=== PATIENT | male | born 1955 | race Hispanic/Latino ===

== ENCOUNTER 2024-12-24 02:50 | Inpatient (IN) | payer OTHER ==
--- OUTSIDE RECORDS SUMMARY | 2024-12-24 02:54 | XMS REPORT | Continuity of Care Document ---
Author Name Unknown Address [address] [facility] [address] [place] [address] Organization [facility] Address [address] [facility] [place] [address] Care Team Providers Care Window Maker Name Role Phone JOSEPH, [facility] Primary Care Physician UnavailFRANNY Montemayor Attending Clinician Unavail niall House MD, Franny Friedman Attending Clinician RASHID PRAJAPATI Attending Clinician RASHID Holguin Attending Clinician Kirk Prajapati MD, Rashid Ho Attending Clinician [phone] Tisha Zambrano MA Attending Clinician Kirk Ruano MD, Zi Attending Clinician [phone] ZI RUANO Attending Clinician Unavailable 2, [facility] Attending Clinician Unavailable Nate BERTRAND, Rah KDominicHDominic Attending Clinician + [phone] RASHID PRAJAPATI Admitting Clinician Kirk ortiz Payers Payer Name Policy Type Policy Number Effective Date Expirati on Date Source [facility] MEDICARE ADVANTAGE Medicare [id number] 2023 00:00:00 [facility] MATI PPO [id number] 2020 00:00:00 [employer] COMM [id number] 2024 00:00:00 Problems Condition Name Condition Details Condition Category Status Onset Date Resolution Date Last Treatment Date Treating Clinician Comments Source MCI (mild cognitive impairment ) MCI (mild cognitive impairment ) Disease Active 05-05 00:00: 00 Dusty Gilbert Memory loss Memory loss Disease Active 05-05 00:00: 00 Dusty Gilbert Balance problem Balance problem Disease Active 05-05 00:00: 00 Dusty Gilbert Hip pain Hip pain Disease Active 05-05 00:00: 00 Dusty Gilbert Primary hypertensi on Primary hypertensi on Disease Active 05-05 00:00: 00 Dusty Gilbert Headache Headache Disease Active 05-05 00:00: 00 Dusty Gilbert Allergies, Adverse Reactions, Alerts Allergy Name Allergy Type Status Severity Reaction(s) Onset Date Inactive Date Treating Clinician Comments Source ALLERGIE S NOT ON FILE SYSTEMIC Active [facility] NO KNOWN ALLERGIE S Drug Class Active [facility] NO KNOWN ALLERGIE S SYSTEMIC Active [facility] NO KNOWN ALLERGIE S SYSTEMIC Active [facility] NO KNOWN ALLERGIE S SYSTEMIC Active [facility] ALLERGIE S NOT ON FILE SYSTEMIC Active [facility] Social History Social Habit Start Date Stop Date Quantity Comments Source History of tobacco use Cigarette Smoker [facility] Gender identity [facility] Sexual orientation [facility] History of Social function 2024-11-10 00:00:00 2024-11-10 00:00:00 [facility] Alcoholic beverage intake 2024-10-03 00:00:00 2024-10-03 00:00:00 Current drinker of alcohol (finding) [facility] Tobacco use and exposure 2024-05-05 00:00:00 2024-05-05 00:00:00 Smokeless tobacco non-user [facility] Alcohol intake 2023-07-10 00:00:00 2023-07-10 00:00:00 Current drinker of alcohol (finding) [facility] Sex assigned at 1955 00:00:00 1955 00:00:00 [facility] Smoking Status Start Date Stop Date Source Smokes tobacco daily 2024-05-05 00:00:00 [facility] Medications Ordered Medication Name Filled Medication Name Start Date Stop Date Current Medication? Ordering Clinician Indication Dosage Frequency Signature (SIG) Comments Components Source donepezil (Aricept) 10 MG tablet donepezil (Aricept) 10 MG tablet -04 00:00: 00 11-10 23:59 :00 No 10mg Take 1 tablet by mouth at bedtime. Dusty Gilbert traMADoL 50 mg tablet 10-03 00:00: 00 Yes [id number] 50mg Take 1 tablet by mouth every 6 (six) hours as needed (pain). Indication s: acute pain [facility] ondansetron 4 mg tablet 10-03 00:00: 00 Yes [id number] 1 or 2 tablets every 8 hours as needed for nausea [facility] donepezil (Aricept) 10 MG tablet donepezil (Aricept) 10 MG tablet 2023-09 00:00: 00 11-10 00:00 :00 No 10mg Take 1 tablet by mouth at bedtime. Dusty Gilbert donepezil (Aricept) 5 MG tablet donepezil (Aricept) 5 MG tablet 06-02 00:00: 00 07-14 00:00 :00 No 5mg Take 1 tablet by mouth at bedtime. Dusty Gilbert amLODIPine (Norvasc) 10 MG tablet amLODIPine (Norvasc) 10 MG tablet 05-05 09:24: 58 Yes 10mg Take 10 mg by mouth every morning. Dusty Gilbert carvedilol (Coreg) 25 MG tablet carvedilol (Coreg) 25 MG tablet 05-05 09:24: 58 Yes 25mg Q.5D Take 25 mg by mouth in the morning and 25 mg in the evening. Take after meals. Dusty Gilbert acetaminoph en-codeine (Tylenol w/ Codeine #3) 300-30 MG tablet acetaminoph en-codeine (Tylenol w/ Codeine #3) 300-30 MG tablet 02-24 00:00: 00 Yes 1{tbl} Q.5D Take 1 tablet by mouth 2 times a day as needed for pain. Dusty Gilbert predniSONE (Deltasone) 20 MG tablet predniSONE (Deltasone) 20 MG tablet 02-24 00:00: 00 Yes TAKE 3 TABLETS BY MOUTH EVERY DAY FOR 3 DAYS THEN TAKE 2 TABLETS BY MOUTH EVERY DAY FOR 3 DAYS THEN TAKE 1 TABLET BY MOUTH EVERY DAY FOR 3 DAYS Dusty Gilbert amLODIPine 10 mg tablet 2022-09 00:00: 00 Yes [id number] 10mg Take 1 tablet by mouth in the morning. [facility] carvediloL 25 mg tablet 2022-09 00:00: 00 Yes [id number] 25mg Take 1 tablet by mouth in the morning and 1 tablet in the evening. Take with meals. [facility] losartan 100 mg tablet 2022-09 00:00: 00 Yes [id number] 100mg Take 1 tablet by mouth in the morning. [facility] amLODIPine 10 mg tablet 05-31 00:00: 00 07-10 00:00 :00 No [id number] 10mg Take 1 tablet by mouth in the morning. [facility] triamterene -hydrochlor othiazide 37.5-25 mg per capsule 05-31 00:00: 00 07-10 00:00 :00 No [id number] 1{capsu le} Take 1 capsule by mouth every morning. [facility] losartan 100 mg tablet 05-02 00:00: 00 07-10 00:00 :00 No [id number] 100mg Take 1 tablet by mouth in the morning. [facility] carvediloL 25 mg tablet 05-02 00:00: 00 07-10 00:00 :00 No [id number] 25mg Take 1 tablet by mouth in the morning and 1 tablet in the evening. Take with meals. [facility] sildenafiL 100 mg tablet 8-09 00:00: 00 Yes TAKE 1 TABLET BY MOUTH 30 MINUTES BEFORE SEXUAL ACTIVITY. MAX 1 PER DAY [facility] metoprolol succinate XL 50 mg 24 hr tablet 8-07 00:00: 00 05-02 00:00 :00 No 50mg Take 1 tablet by mouth in the morning. [facility] losartan 50 mg tablet 6-12 00:00: 00 2023- 08-24 00:00 :00 No 50mg Take 1 tablet by mouth in the morning. [facility] Vital Signs Vital Name Observation Time Observation Value Comments Oseas lopez Body height 2024-11-10 10:56:00 157.5 cm [facility] Body weight 2024-11-10 10:56:00 65.772 kg [facility] BMI 2024-11-10 10:56:00 26.52 kg/m2 [facility] Oxygen saturation in Arterial blood by Pulse oximetry 2024-11-10 10:56:00 97 /min [facility] Systolic blood pressure 2024-11-10 10:56:00 177 mm[Hg] [facility] Diastolic blood pressure 2024-11-10 10:56:00 101 mm[Hg] [facility] Epic Heart rate 2024-11-10 10:56:00 52 /min [facility] Body temperature 2024-11-10 10:56:00 36.61 [facility] Respiratory rate 2024-11-10 10:56:00 16 /min [facility] Body height 2024-11-10 10:56:00 157.5 cm [facility] Body weight 2024-11-10 10:56:00 65.772 kg [facility] BMI 2024-11-10 10:56:00 26.52 kg/m2 [facility] Oxygen saturation in Arterial blood by Pulse oximetry 2024-11-10 10:56:00 97 /min [facility] Systolic blood pressure 2024-11-10 10:56:00 177 mm[Hg] [facility] Diastolic blood pressure 2024-11-10 10:56:00 101 mm[Hg] [facility] Heart rate 2024-11-10 10:56:00 52 /min [facility] Body temperature 2024-11-10 10:56:00 36.61 [facility] Respiratory rate 2024-11-10 10:56:00 16 /min [facility] Systolic blood pressure 2024-10-04 01:58:00 189 mm[Hg] [facility] Diastolic blood pressure 2024-10-04 01:58:00 94 mm[Hg] [facility] Heart rate 2024-10-04 01:58:00 69 /min [facility] Respiratory rate 2024-10-04 01:58:00 14 /min [facility] Oxygen saturation in Arterial blood by Pulse oximetry 2024-10-04 01:58:00 98 /min [facility] Body temperature 2024-10-04 00:15:18 37.06 Ayana [facility] Body height 2024-10-03 23:41:44 157.5 cm [facility] Body weight 2024-10-03 23:41:44 63.504 kg [facility] BMI 2024-10-03 23:41:44 25.61 kg/m2 [facility] Systolic blood pressure 2024-07-14 14:44:00 158 mm[Hg] [facility] Diastolic blood pressure 2024-07-14 14:44:00 84 mm[Hg] [facility] Heart rate 2024-07-14 14:44:00 54 /min [facility] Body temperature 2024-07-14 14:44:00 36.89 Ayana [facility] Respiratory rate 2024-07-14 14:44:00 16 /min [facility] Body height 2024-07-14 14:44:00 157.5 cm [facility] Body weight 2024-07-14 14:44:00 63.685 kg [facility] BMI 2024-07-14 14:44:00 25.68 kg/m2 [facility] Oxygen saturation in Arterial blood by Pulse oximetry 2024-07-14 14:44:00 97 /min [facility] Systolic blood pressure 2024-07-14 14:44:00 158 mm[Hg] [facility] Diastolic blood pressure 2024-07-14 14:44:00 84 mm[Hg] [facility] Heart rate 2024-07-14 14:44:00 54 /min [facility] Body temperature 2024-07-14 14:44:00 36.89 Ayana [facility] Respiratory rate 2024-07-14 14:44:00 16 /min [facility] Body height 2024-07-14 14:44:00 157.5 cm [facility] [place] [facility] Body weight 2024-07-14 14:44:00 63.685 kg [facility] [place] [facility] BMI 2024-07-14 14:44:00 25.68 kg/m2 [facility] Oxygen saturation in Arterial blood by Pulse oximetry 2024-07-14 14:44:00 97 /min [facility] Systolic blood pressure 2024-06-02 14:41:00 154 mm[Hg] [facility] Diastolic blood pressure 2024-06-02 14:41:00 86 mm[Hg] [facility] Heart rate 2024-06-02 14:41:00 57 /min [facility] [place] [facility] Body temperature 2024-06-02 14:41:00 37.22 [facility] Respiratory rate 2024-06-02 14:41:00 16 /min [facility] Body height 2024-06-02 14:41:00 157.5 cm [facility] Body weight 2024-06-02 14:41:00 62.596 kg [facility] [place] Epic BMI 2024-06-02 14:41:00 25.24 kg/m2 [facility] [place] [facility] Oxygen saturation in Arterial blood by Pulse oximetry 2024-06-02 14:41:00 98 /min [facility] Systolic blood pressure 2024-06-02 14:41:00 154 mm[Hg] [facility] Diastolic blood pressure 2024-06-02 14:41:00 86 mm[Hg] [facility] Heart rate 2024-06-02 14:41:00 57 /min [facility] Body temperature 2024-06-02 14:41:00 37.22 [facility] Epic Respiratory rate 2024-06-02 14:41:00 16 /min [facility] Body height 2024-06-02 14:41:00 157.5 cm [facility] [place] [facility] Body weight 2024-06-02 14:41:00 62.596 kg [facility] BMI 2024-06-02 14:41:00 25.24 kg/m2 [facility] Oxygen saturation in Arterial blood by Pulse oximetry 2024-06-02 14:41:00 98 /min [facility] Systolic blood pressure 2024-05-05 09:27:00 157 mm[Hg] [facility] Her [facility] Diastolic blood pressure 2024-05-05 09:27:00 91 mm[Hg] [facility] Heart rate 2024-05-05 09:27:00 61 /min [facility] Body temperature 2024-05-05 09:27:00 36.78 Ayana [facility] Respiratory rate 2024-05-05 09:27:00 16 /min [facility] Body height 2024-05-05 09:27:00 157.5 cm [facility] [place] [facility] Body weight 2024-05-05 09:27:00 62.596 kg [facility] BMI 2024-05-05 09:27:00 25.24 kg/m2 [facility] [place] [facility] Oxygen saturation in Arterial blood by Pulse oximetry 2024-05-05 09:27:00 98 /min [facility] Her [facility] Systolic blood pressure 2024-05-05 09:27:00 157 mm[Hg] [facility] Her ferreira [facility] Diastolic blood pressure 2024-05-05 09:27:00 91 mm[Hg] [facility] Heart rate 2024-05-05 09:27:00 61 /min [facility] Body temperature 2024-05-05 09:27:00 36.78 Ayana [facility] Epic Respiratory rate 2024-05-05 09:27:00 16 /min [facility] Body height 2024-05-05 09:27:00 157.5 cm [facility] Body weight 2024-05-05 09:27:00 62.596 kg [facility] BMI 2024-05-05 09:27:00 25.24 kg/m2 [facility] [place] [facility] Oxygen saturation in Arterial blood by Pulse oximetry 2024-05-05 09:27:00 98 /min [facility] Systolic blood pressure 2023-07-10 18:40:00 96 mm[Hg] [facility] Diastolic blood pressure 2023-07-10 18:40:00 64 mm[Hg] [facility] Heart rate 2023-07-10 18:40:00 51 /min [facility] Body temperature 2023-07-10 18:40:00 36.89 Ayana [facility] Respiratory rate 2023-07-10 18:40:00 18 /min [facility] Body height 2023-07-10 18:40:00 157.5 cm [facility] Body weight 2023-07-10 18:40:00 61.78 kg [facility] BMI 2023-07-10 18:40:00 24.91 kg/m2 [facility] Oxygen saturation in Arterial blood by Pulse oximetry 2023-07-10 18:40:00 99 /min [facility] Systolic blood pressure 2023-05-31 18:35:00 187 mm[Hg] [facility] Diastolic blood pressure 2023-05-31 18:35:00 99 mm[Hg] [facility] Heart rate 2023-05-31 18:35:00 57 /min [facility] Oxygen saturation in Arterial blood by Pulse oximetry 2023-05-31 18:35:00 95 /min [facility] Body weight 2023-05-31 18:33:00 61.462 kg Univ [facility] BMI 2023-05-31 18:33:00 24.78 kg/m2 [facility] Respiratory rate 2023-05-31 18:33:00 19 /min [facility] Body height 2023-05-31 18:33:00 157.5 cm [facility] Systolic blood pressure 2023-05-02 20:56:00 178 mm[Hg] [facility] Diastolic blood pressure 2023-05-02 20:56:00 114 mm[Hg] [facility] Heart rate 2023-05-02 20:56:00 67 /min [facility] Body height 2023-05-02 20:56:00 157.5 cm [facility] Body weight 2023-05-02 20:56:00 61.1 kg [facility] BMI 2023-05-02 20:56:00 24.64 kg/m2 [facility] Oxygen saturation in Arterial blood by Pulse oximetry 2023-05-02 20:56:00 95 /min [facility] Procedures Procedure Date / Time Performed Performing Clinician Source EKG-12 LEAD 2024-10-04 02:02:41 Rashid Prajapati [facility] TROPONIN I 2024-10-04 00:09:00 Rashid Prajapati [facility] COMP. METABOLIC PANEL ([id number]) 2024-10-04 00:09:00 Rashid Prajapati [facility] CBC WITH DIFF 2024-10-04 00:09:00 Rashid Prajapati [facility] Complete Blood Count w/Diff and Platelet 2024-05-05 00:00:00 [facility] Comprehensive Metabolic Panel 2024-05-05 00:00:00 [facility] Copper Level 2024-05-05 00:00:00 [facility] C-Reactive Protein 2024-05-05 00:00:00 [facility] Sedimentation Rate 2024-05-05 00:00:00 [facility] Thyroid Stimulating Hormone w/ Reflex Free T4 2024-05-05 00:00:00 [facility] Vitamin B1 Level 2024-05-05 00:00:00 [facility] Vitamin B12 Level 2024-05-05 00:00:00 [facility] Zinc Level 2024-05-05 00:00:00 [facility] XR chest 2 views 2024-05-05 00:00:00 [facility] MRI brain wo IV contrast 2024-05-05 00:00:00 [facility] XR hip 2-3 views left 2024-05-05 00:00:00 [facility] TRANSTHORACIC ECHO (TTE) COMPLETE 2023-07-10 18:24:58 Zi Ruano [facility] EKG-12 LEAD 2023-05-02 20:49:57 Zi Ruano [facility] Encounters Start Date/Time End Date/Time Encounter Type Admission Type Attending Clinicians Care Facility Care Department Encounter ID Source 2024-11-10 10:46:46 2024-11-10 11:14:58 Outpatient FRANNY HOUSE [id number] [facility] 2024-11-10 10:45:00 2024-11-10 11:14:58 Office Visit rFanny House Justin 1.2.840.114 350.1.13.70 8.2.7.2.686 [id number] Dusty stephenson [facility] 2024-10-03 17:39:00 2024-10-03 20:20:00 Emergency X R[facility]ID [facility] [id number] [facility] 2024-10-03 17:39:00 2024-10-03 20:20:00 Emergency [facility] 1.2.840.114 350.1.13.10 4.2.7.2.686 [id number] [facility] 2024-07-14 14:13:28 2024-07-14 15:05:29 Outpatient FRANNY HOUSE [facility] EOUT [id number] [facility] 2024-07-14 14:30:00 2024-07-14 14:45:00 Office Visit Franny House Justin [id number] 350.1.13.70 8.2.7.2.686 [id number] Dusty stephenson [facility] 2024-06-04 00:00:00 2024-07-05 23:52:47 Telephone Tisha Zambrano [place] 1.2.840.114 350.1.13.70 8.2.7.2.686 [id number] [facility] 2024-06-02 14:30:00 2024-06-02 15:16:18 Office Visit Franny House Justin [id number] 350.1.13.70 8.2.7.2.686 [id number] Dusty stephenson [facility] 2024-06-02 14:20:26 2024-06-02 15:16:18 Outpatient FRANNY HOUSE EOUT [facility] [id number] [facility] 2024-05-05 09:30:00 2024-05-05 10:14:55 Consult Franny House Justin 1.2.840.114 350.1.13.70 8.2.7.2.686 [id number] [facility] 2024-05-05 09:07:17 2024-05-05 10:14:55 Outpatient Elective FRANNY HOUSE EOUT EOUT [id number] [facility] 2023-07-11 00:00:00 2023-07-11 00:00:00 [facility] 1.2.840.114 350.1.13.10 4.2.7.2.686 [id number] [facility] 2023-07-10 12:32:35 2023-07-10 23:59:00 [facility] [id number] 2023-07-10 12:32:35 2023-07-10 23:59:00 [facility] 1.2.840.114 350.1.13.10 4.2.7.2.686 [id number] [facility] 2023-07-10 14:20:00 2023-07-10 14:40:00 [facility] 1.2.840.114 350.1.13.10 4.2.7.2.686 [id number] [facility] 2023-06-03 00:00:00 2023-06-03 00:00:00 [facility]phone [facility] 1.2.840.114 350.1.13.10 4.2.7.2.686 [id number] [facility] 2023-06-03 00:00:00 2023-06-03 00:00:00 [facility] 1.2.840.114 350.1.13.10 4.2.7.2.686 [id number] [facility] 2023-05-31 14:00:00 2023-05-31 14:15:00 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 Project 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 Visit 2, [facility] 1.2.840.114 350.1.13.10 4.2.7.2.686 [id number] [facility] 2023-05-31 13:40:00 2023-05-31 13:56:56 Outpatient R BINDU [facility] [id number] [facility] 2023-05-31 13:40:00 2023-05-31 13:56:56 Office Visit Bindu [facility] 1.2.840.114 350.1.13.10 4.2.7.2.686 [id number] [facility] 2023-05-07 00:00:00 2023-05-07 00:00:00 Telephone Rah Sullivan [facility] 1.2.840.114 350.1.13.10 4.2.7.2.686 [id number] [facility] 2023-05-06 00:00:00 2023-05-06 00:00:00 Telephone Bindu [facility] 1.2.840.114 350.1.13.10 4.2.7.2.686 [id number] [facility] 2023-05-03 00:00:00 2023-05-03 00:00:00 Telephone Bindu, [facility] 1.2.840.114 350.1.13.10 4.2.7.2.686 [id number] [facility] 2023-05-02 15:40:00 2023-05-02 16:17:46 [facility] [id number] [facility] 2023-05-02 15:40:00 2023-05-02 16:17:46 [facility] 1.2.840.114 350.1.13.10 4.2.7.2.686 [id number] [facility] Results Test Description Test Time Test Comments Results Result Co mments Source [facility] Notes has a current medication list which includes the following prescription(s):Vitals:Neurological ExamCranial NervesMotorSensoryReflexesGaitResults for orders placed or performed in visit on 05/05/24 Date/Time Note Provider Source 2024-11-10 11:22:05 [facility] 2024-11-10 11:22:05 Franny House MD - 11/10/2024 10:45 AM 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 BP is high today. No behavioral problems. No new issues referable to his nervous system Allergies as of 11/10/2024 (No Known Allergies) acetaminophen-codeine, amlodipine, carvedilol, prednisone, and donepezil. 11/10/24 1056 BP: (!) 177/101 Pulse: 52 Resp: 16 Temp: 36.6 ?C (97.9 ?F) SpO2: 97% Mental Status Awake and alert. Speech is normal. Year, day, not month 6/6 pictures. CN II: Visual acuity is normal. CN III, IV, : Extraocular movements intact bilaterally. Pupils equal round and reactive to light bilaterally. CN VII: Full and symmetric facial movement. CN XII: Tongue midline without atrophy or fasciculations. Strength is 5/5 throughout all four extremities. Light touch is normal in upper and lower extremities. Temperature is normal in upper and lower extremities. Vibration is normal in upper and lower extremities. Deep tendon reflexes: Symmetric. Casual gait is normal including stance, stride, and arm swing. Complete Blood Count w/Diff and Platelet Collection Time: 05/08/24 8:14 AM Result Value Ref Range WBC X 10x3 6.5 3.8 - 10.8 Thousand/uL RBC X 10x6 5.11 4.20 - 5.80 Million/uL Hgb 14.9 13.2 - 17.1 g/dL Hct 44.5 38.5 - 50.0 % MCV 87.1 80.0 - 100.0 fL MCH 29.2 27.0 - 33.0 pg MCHC 33.5 32.0 - 36.0 g/dL RDW 13.9 11.0 - 15.0 % Platelet 199 140 - 400 Thousand/uL MPV 11.9 7.5 - 12.5 fL Segs # 4,238 1,500 - 7,800 cells/uL Lymphocytes # 1,547 850 - 3,900 cells/uL Monocytes # 371 200 - 950 cells/uL Eosinophils # 312 15 - 500 cells/uL Basophils # 33 0 - 200 cells/uL Segs % 65.2 % Lymphocytes 23.8 % Monocytes 5.7 % Eos % 4.8 % Basophils 0.5 % Comprehensive Metabolic Panel Collection Time: 05/08/24 8:14 AM Result Value Ref Range Glucose Lvl 94 65 - 99 mg/dL BUN 15 7 - 25 mg/dL Creatinine Lvl 0.73 0.70 - 1.35 mg/dL eGFR 98 > OR = 60 mL/min/1.73m2 B/C Ratio SEE NOTE: 6 - 22 (calc) Sodium Lvl 138 135 - 146 mmol/L Potassium Lvl 3.9 3.5 - 5.3 mmol/L Chloride Lvl 104 98 - 110 mmol/L CO2 Lvl 25 20 - 32 mmol/L Calcium Lvl 8.6 8.6 - 10.3 mg/dL Total Protein 6.5 6.1 - 8.1 g/dL Albumin Lvl 4.0 3.6 - 5.1 g/dL Globulin 2.5 1.9 - 3.7 g/dL (calc) A/G Ratio 1.6 1.0 - 2.5 (calc) Bili Total 1.1 0.2 - 1.2 mg/dL Alk Phos 69 35 - 144 U/L AST 13 10 - 35 U/L ALANINE AMINOTRANSFERASE 9 9 - 46 U/L Copper Level Collection Time: 05/08/24 8:14 AM Result Value Ref Range Copper Lvl 75 70 - 175 mcg/dL C-Reactive Protein Collection Time: 05/08/24 8:14 AM Result Value Ref Range C-Reactive Protein <3.0 <8.0 mg/L Sedimentation Rate Collection Time: 05/08/24 8:14 AM Result Value Ref Range Sed Rate 2 0 - 20 mm/h Thyroid Stimulating Hormone w/ Reflex Free T4 Collection Time: 05/08/24 8:14 AM Result Value Ref Range TSH 1.66 0.40 - 4.50 mIU/L Vitamin B1 Level Collection Time: 05/08/24 8:14 AM Result Value Ref Range VITAMIN B1 (THIAMINE) WHOLE BLOOD 112 78 - 185 nmol/L Vitamin B12 Level Collection Time: 05/08/24 8:14 AM Result Value Ref Range Vitamin B12 Lvl 209 200 - 1,100 pg/mL Zinc Level Collection Time: 05/08/24 8:14 AM Result Value Ref Range Zinc Lvl 59 (L) 60 - 130 mcg/dL Diagnoses and all orders for this visit: MCI (mild cognitive impairment) Other orders - donepezil (Aricept) 10 MG tablet; Take 1 tablet by mouth at bedtime. Stable, continue present medications. [facility] Due Date Last Done Comments CT Colonography 1955 Colonoscopy 1955 Colorectal Cancer Screening 1955 FIT-DNA 1955 FIT 1955 FOBT 1955 Lipid Panel 1955 Medicare Annual Wellness (AWV) 1955 Sigmoidoscopy 1955 Annual Physical 1958 Pneumococcal Vaccine: 65+ Ye ars (1 of 2 - PCV) 1961 DTaP/Tdap/Td Vaccines (1 - Tdap) 1974 Zoster Vaccines (1 of 2) 2005 Abdominal Aortic Aneurysm (A AA) Screening 01/07/2020 Influenza Vaccine (#1) 2024 Respiratory Syncytial Virus (RSV) or >=60 (1 - 1-dose 75+ series) 2030 HIB Vaccines Aged Out No longer eligi ble based on patient's age to complete this topic HPV Vaccines Aged Out No longer eligi ble based on patient's age to complete this topic Hepatitis A Vaccines Aged Out No long er eligible based on patient's age to complete this topic Hepatitis B Vaccines Aged Out No long er eligible based on patient's age to complete this topic IPV Vaccines Aged Out No longer eligi ble based on patient's age to complete this topic Meningococcal Vaccine Aged Out No priscilla wendy eligible based on patient's age to complete this topic Rotavirus Vaccines Aged Out No longer eligible based on patient's age to complete this topic [id number] 11:22:05 Diagnosis MCI (mild cognitive impairment) - Primary Mild cognitive impairment, so stated [facility]xykvvg1165-32-20 11:22:05 [facility]Xucgzrx0063-22-67 11:22:05* [facility] HospitalMkymzie0771-40-63 11:22:05* Franny House MD - 11/10/2024 10:45 AM 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 BP is high today. No behavioral problems. No new issues referable to his nervous system Allergies as of 11/10/2024 (No Known Allergies) has a current medication list which includes the following prescription(s): acetaminophen-codeine, amlodipine, carvedilol, prednisone, and donepezil. Vitals:11/10/24 1056 BP: (!) 177/101 Pulse: 52 Resp: 16 Temp: 36.6 ?C (97.9 ?F) SpO2: 97% Neurological Exam Mental Status Awake and alert. Speech is normal. Year, day, not month 02/12 pictures. Cranial NervesCN II: Visual acuity is normal. CN III, IV, : Extraocular movements intact bilaterally. Pupils equal round and reactive to light bilaterally. CN VII: Full and symmetric facial movement. CN XII: Tongue midline without atrophy or fasciculations. MotorStrength is 5/5 throughout all four extremities. SensoryLight touch is normal in upper and lower extremities. Temperature is normal in upper and lower extremities. Vibration is normal in upper and lower extremities. ReflexesDeep tendon reflexes: Symmetric. GaitCasual gait is normal including stance, stride, and arm swing. Results for orders placed or performed in visit on 05/05/24 Complete Blood Count w/Diff and Platelet Collection Time: 05/08/24 8:14 AM Result Value Ref Range WBC X 10x3 6.5 3.8 - 10.8 Thousand/uL RBC X 10x6 5.11 4.20 - 5.80 Million/uL Hgb 14.9 13.2 - 17.1 g/dL Hct 44.5 38.5 - 50.0 % MCV 87.1 80.0 - 100.0 fL MCH 29.2 27.0 - 33.0 pg MCHC 33.5 32.0 - 36.0 g/dL RDW 13.9 11.0 - 15.0 % Platelet 199 140 - 400 Thousand/uL MPV 11.9 7.5 - 12.5 fL Segs # 4,238 1,500 - 7,800 cells/uL Lymphocytes # 1,547 850 - 3,900 cells/uL Monocytes # 371 200 - 950 cells/uL Eosinophils # 312 15 - 500 cells/uL Basophils # 33 0 - 200 cells/uL Segs % 65.2 % Lymphocytes 23.8 % Monocytes 5.7 % Eos % 4.8 % Basophils 0.5 % Comprehensive Metabolic Panel Collection Time: 05/08/24 8:14 AM Result Value Ref Range Glucose Lvl 94 65 - 99 mg/dL BUN 15 7 - 25 mg/dL Creatinine Lvl 0.73 0.70 - 1.35 mg/dL eGFR 98 > OR = 60 mL/min/1.73m2 B/C Ratio SEE NOTE: 6 - 22 (calc) Sodium Lvl 138 135 - 146 mmol/L Potassium Lvl 3.9 3.5 - 5.3 mmol/L Chloride Lvl 104 98 - 110 mmol/L CO2 Lvl 25 20 - 32 mmol/L Calcium Lvl 8.6 8.6 - 10.3 mg/dL Total Protein 6.5 6.1 - 8.1 g/dL Albumin Lvl 4.0 3.6 - 5.1 g/dL Globulin 2.5 1.9 - 3.7 g/dL (calc) A/G Ratio 1.6 1.0 - 2.5 (calc) Bili Total 1.1 0.2 - 1.2 mg/dL Alk Phos 69 35 - 144 U/L AST 13 10 - 35 U/L ALANINE AMINOTRANSFERASE 9 9 - 46 U/L Copper Level Collection Time: 05/08/24 8:14 AM Result Value Ref Range Copper Lvl 75 70 - 175 mcg/dL C-Reactive Protein Collection Time: 05/08/24 8:14 AM Result Value Ref Range C-Reactive Protein <3.0 <8.0 mg/L Sedimentation Rate Collection Time: 05/08/24 8:14 AM Result Value Ref Range Sed Rate 2 0 - 20 mm/h Thyroid Stimulating Hormone w/ Reflex Free T4 Collection Time: 05/08/24 8:14 AM Result Value Ref Range TSH 1.66 0.40 - 4.50 mIU/L Vitamin B1 Level Collection Time: 05/08/24 8:14 AM Result Value Ref Range VITAMIN B1 (THIAMINE) WHOLE BLOOD 112 78 - 185 nmol/L Vitamin B12 Level Collection Time: 05/08/24 8:14 AM Result Value Ref Range Vitamin B12 Lvl 209 200 - 1,100 pg/mL Zinc Level Collection Time: 05/08/24 8:14 AM Result Value Ref Range Zinc Lvl 59 (L) 60 - 130 mcg/dL No MRI head results found for the past 12 months Assessment & PlanDiagnoses and all orders for this visit: MCI (mild cognitive impairment) Other orders - donepezil (Aricept) 10 MG tablet; Take 1 tablet by mouth at bedtime. Stable, continue present medications. [facility]2025-03-04 11:22:05Upcoming Encounters Health Maintenance Due Date Last Done Comments CT Colonography 1955 Colonoscopy 1955 Colorectal Cancer Screening 1955 FIT-DNA 1955 FIT 1955 FOBT 1955 Lipid Panel 1955 Medicare Annual Wellness (AWV) 1955 Sigmoidoscopy 1955 Annual Physical 1958 Pneumococcal Vaccine: 65+ Ye ars (1 of 2 - PCV) 1961 DTaP/Tdap/Td Vaccines (1 - Tdap) 1974 Zoster Vaccines (1 of 2) 2005 Abdominal Aortic Aneurysm (A AA) Screening 01/07/2020 Influenza Vaccine (#1) 2024 Respiratory Syncytial Virus (RSV) or >=60 (1 - 1-dose 75+ series) 2030 HIB Vaccines Aged Out No longer eligi ble based on patient's age to complete this topic HPV Vaccines Aged Out No longer eligi ble based on patient's age to complete this topic Hepatitis A Vaccines Aged Out No long er eligible based on patient's age to complete this topic Hepatitis B Vaccines Aged Out No long er eligible based on patient's age to complete this topic IPV Vaccines Aged Out No longer eligi ble based on patient's age to complete this topic Meningococcal Vaccine Aged Out No priscilla wendy eligible based on patient's age to complete this topic Rotavirus Vaccines Aged Out No longer eligible based on patient's age to complete this topic [place] 69219-03-04 11:22:05 Diagnosis MCI (mild cognitive impairment) - Primary Mild cognitive impairment, so stated [place] 692[address]-03-04 11:22:05 [place] [id number] 20:18:30 Patient teaching on f/u care, and prescription meds. Pt verbalized understanding. Pt wheeled to vehicle. No distress noted at this time. [facility] Cheryle Saldaña [facility], [facility]–1983Idvybj8788-15-27 18:30:00 arrived, spouse reports pt did not loose conscience after the fall but was not able to remember he fell. reports she did not witness the fall but hear the noise when patient fell. Pt is suppose to use cane and refuses to use it. Spouse confirms pt is at baseline. [facility]2025-01-25 18:09:[address] scan and [facility] with RN and trauma team. Continuous cardiac monitoring and serial vital signs monitored by nurse. CHERYLE SALDAÑA RN [place] [id number] 17:59:00 Pt being transported to CT accompanied by this nurse and project design engineer with monitor [place] 78885-01-25 17:59:[address] scan with RN and trauma team. Continuous cardiac monitoring and serial vital signs monitored by Nurse. CHERYLE SALDAÑA RN [place] [id number] 17:55:00 MD at bedside [place] [id number] 17:38:00 Associated Order(s): EKG-12 Lead ROUTINE ONCE Pre-Procedure Diagnose(s): Contusion of scalp, initial encounter Post-Procedure Diagnose(s): Contusion of scalp, initial encounter Images from the original note were not included. 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 Denies loss of consciousness. Right sided headache, scalp contusion. Does not recall mechanism of fall. Possible misstep. Denies recent acute medical issues. No light-headedness. No neuro deficits. No fever. No cold symptoms. No chest pain. No dyspnea. No nausea, vomiting, diarrhea. No abdominal pain. No injury elsewhere. History provided by: Patient Past Medical History/Immunizations: History reviewed. No pertinent past medical history. Tetanus received in last 5 years: Unknown Childhood immunizations: Up-to-date Allergies: No Known Allergies Past Social History: Tobacco Use Every Day; Types: Cigarettes Smokeless Tobacco: Never used smokeless tobacco. Alcohol Use Yes. Past Surgical History: History reviewed. No pertinent surgical history. Review of Systems: Review of Systems Constitutional: Negative. HENT: Negative. Eyes: Negative. Respiratory: Negative. Cardiovascular: Negative. Gastrointestinal: Negative. Genitourinary: Negative. Musculoskeletal: Negative. Skin: Positive for wound (right scalp abrasion / hematoma). Neurological: Positive for headaches. Collapse uncertain etiology Psychiatric/Behavioral: Negative. Physical Exam: ED Triage Vitals Weight 10/03/24 1741 63.5 kg (140 lb) Actual or estimated -- Height 10/03/24 1741 1.575 m (5' 2") BP 10/03/24 1741 (!) 168/124 Pulse 10/03/24 1741 68 Resp 10/03/24 1741 13 Temp 10/03/24 1815 37.1 ?C (98.7 ?F) Temp source 10/03/24 1815 Oral SpO2 10/03/24 1741 99 % Measured on 10/03/248 Room air Physical Exam Vitals and nursing note reviewed. Constitutional: General: He is not in acute distress. Appearance: Normal appearance. He is not ill-appearing, toxic-appearing or diaphoretic. HENT: Head: Contusion present. No raccoon eyes, Ramachandran's sign, abrasion, masses, right periorbital erythema, left periorbital erythema or laceration. Hair is normal. Jaw: No tenderness, swelling or pain on movement. Right Ear: Tympanic membrane, ear canal and external ear normal. No laceration, swelling or tenderness. No hemotympanum. Left Ear: Tympanic membrane, ear canal and external ear normal. No laceration, swelling or tenderness. No hemotympanum. Nose: Nose normal. No signs of injury or laceration. Right Nostril: No epistaxis or septal hematoma. Left Nostril: No epistaxis or septal hematoma. Mouth/Throat: Lips: No lesions. Mouth: No injury or lacerations. Eyes: General: Lids are normal. Extraocular Movements: Extraocular movements intact. Conjunctiva/sclera: Conjunctivae normal. Neck: Trachea: Trachea and phonation normal. Cardiovascular: Rate and Rhythm: Normal rate and regular rhythm. Pulmonary: Effort: Pulmonary effort is normal. No respiratory distress. Breath sounds: Normal breath sounds. No wheezing, rhonchi or rales. Chest: Chest wall: No tenderness. Abdominal: General: There is no distension. Palpations: Abdomen is soft. Tenderness: There is no abdominal tenderness. Musculoskeletal: General: Normal range of motion. Cervical back: No spinous process tenderness or muscular tenderness. Skin: General: Skin is warm and dry. Neurological: General: No focal deficit present. Mental Status: He is alert. Comments: Awake, alert, oriented. Amnestic to etiology of fall. No gross motor/sensory/speech deficits Psychiatric: Mood and Affect: Mood normal. Behavior: Behavior normal. Thought Content: Thought content normal. Judgment: Judgment normal. Radiology: CT Head wo contrast Preliminary Result CT HEAD WO CONTRAST, CT CERVICAL SPINE WO CONTRAST HISTORY: Head trauma, moderate-severe right sided head injury; fall from standing COMPARISON: None TECHNIQUE: Unenhanced CT of the head and cervical spine was performed. Sagittal and coronal reformats were obtained. FINDINGS: HEAD: There is no acute intracranial hemorrhage or significant mass effect. The dempsey-white matter differentiation is preserved. No hydrocephalus, midline shift or pathological extra-axial fluid collection is present. Global volume loss with commensurate ventricular caliber. Patchy periventricular hypodensities most likely representing chronic microvascular disease. The basal cisterns are unremarkable. The mastoid air cells and paranasal air sinuses are clear. The calvarium and central skull base are unremarkable. There is a right frontotemporal 1 x 7.6 cm scalp hematoma. CERVICAL SPINE: Straightening of normal cervical lordosis is seen. The vertebral bodies are normal in height and alignment. No acute fracture or traumatic malalignment. The craniocervical junction is intact. IMPRESSION No acute intracranial hemorrhage or mass effect. Large right frontoparietal scalp hematoma without underlying calvarial fracture. No acute fracture or traumatic malalignment in the cervical spine. Preliminary Report Dictated by Resident: Jagruti Hutchins CT Cervical spine wo contrast Preliminary Result CT HEAD WO CONTRAST, CT CERVICAL SPINE WO CONTRAST HISTORY: Head trauma, moderate-severe right sided head injury; fall from standing COMPARISON: None TECHNIQUE: Unenhanced CT of the head and cervical spine was performed. Sagittal and coronal reformats were obtained. FINDINGS: HEAD: There is no acute intracranial hemorrhage or significant mass effect. The dempsey-white matter differentiation is preserved. No hydrocephalus, midline shift or pathological extra-axial fluid collection is present. Global volume loss with commensurate ventricular caliber. Patchy periventricular hypodensities most likely representing chronic microvascular disease. The basal cisterns are unremarkable. The mastoid air cells and paranasal air sinuses are clear. The calvarium and central skull base are unremarkable. There is a right frontotemporal 1 x 7.6 cm scalp hematoma. CERVICAL SPINE: Straightening of normal cervical lordosis is seen. The vertebral bodies are normal in height and alignment. No acute fracture or traumatic malalignment. The craniocervical junction is intact. IMPRESSION No acute intracranial hemorrhage or mass effect. Large right frontoparietal scalp hematoma without underlying calvarial fracture. No acute fracture or traumatic malalignment in the cervical spine. Preliminary Report Dictated by Resident: Jagruti Hutchins Lab Results: Lab Results CBC WITH DIFF - Abnormal Result Value Ref Range WBC 7.59 4.20 - 10.70 10*3/?L RBC 4.80 4.26 - 5.52 10*6/?L HGB 14.2 12.2 - 16.4 g/dL HCT 41.8 38.4 - 49.3 % MCV 87.1 81.7 - 95.6 fL MCH 29.6 26.1 - 32.7 pg MCHC 34.0 31.2 - 35.0 g/dL RDW-SD 41.5 38.5 - 51.6 fL RDW-CV 13.1 12.1 - 15.4 % PLT 224 150 - 328 10*3/?L MPV 11.1 9.8 - 13.0 fL NRBC/100 WBC 0.0 0.0 - 10.0 /100 WBCs NRBC x103<0.01 10*3/?L GRAN MAT (NEUT) % 67.3 % IMM GRAN % 0.90 % LYMPH % 21.1 % MONO % 7.0 % EOS % 3.3 % BASO % 0.4 % GRAN MAT x103(ANC) 5.11 1.99 - 6.95 10*3/uL IMM GRAN x1030.07 (*) 0.00 - 0.06 10*3/uL LYMPH x1031.60 1.09 - 3.23 10*3/uL MONO x1030.53 0.36 - 1.02 10*3/uL EOS x1030.25 0.06 - 0.53 10*3/uL BASO x1030.03 0.01 - 0.09 10*3/uL COMP. METABOLIC PANEL (22340) - Abnormal NA 139 135 - 145 mmol/L K 3.4 (*) 3.5 - 5.0 mmol/L CL 106 98 - 108 mmol/L CO2 TOTAL 25 23 - 31 mmol/L AGAP 8 2 - 16 BUN 20 7 - 23 mg/dL GLUCOSE 126 (*) 70 - 110 mg/dL CREATININE 0.86 0.60 - 1.25 mg/dL TOTAL BILI 1.2 (*) 0.1 - 1.1 mg/dL CALCIUM 8.8 8.6 - 10.6 mg/dL T PROTEIN 6.9 6.3 - 8.2 g/dL ALBUMIN 4.1 3.5 - 5.0 g/dL ALK PHOS 82 34 - 122 U/L ALTv 15 5 - 50 U/L AST(SGOT) 24 13 - 40 U/L eGFR 93.7 mL/min/1.73m2 TROPONIN I - Normal TROPONIN I 0.002 <=0.034 ng/mL EKG: If EKG completed, see Procedure Note. Orders and Treatments: Orders Placed This Encounter Procedures CT Head wo contrast CT Cervical spine wo contrast CBC WITH DIFF COMP. METABOLIC PANEL (78206) TROPONIN I Orders Placed This Encounter Medications traMADoL 50 mg tablet ondansetron 4 mg tablet First Provider Eval: ED Events Date/Time Event User Comments 10/03/241746 Medical Screening Begins RASHID PRAJAPATI MD -- 10/03/241746 First Provider Evaluation RASHID PRAJAPATI MD -- ED COURSE Diagnosis/Impression as of 10/03/242003 Contusion of scalp, initial encounter Collapse Procedures: EKG-12 Lead ROUTINE ONCE Date/Time: 10/03/2024 8:01 PM Performed by: Rashid Prajapati MD Authorized by: Rashid Prajapati MD ECG interpreted by ED Physician in the absence of a vegetable picker: yes Previous ECG: Previous ECG: Compared to current Interpretation: Interpretation: non-specific Rate: ECG rate: 65 ECG rate assessment: normal Rhythm: Rhythm: sinus rhythm Ectopy: Ectopy: none QRS: QRS axis: Left (-39) ST segments: ST segments: Non-specific T waves: T waves: non-specific Comments: Qtc 401 MDM: Medical Decision Making Primary impression: scalp contusion Secondary impression: collapse of uncertain etiology Differential Diagnoses, including but not limited to: electrolyte / glucose abnl, anemia, ROMERO, arrhythmia, acute coronary event, fracture, hemorrhage Problems Addressed: Contusion of scalp, initial encounter: acute illness or injury Amount and/or Complexity of Data Reviewed Independent Historian: Details: Self, family Labs: ordered. Decision-making details documented in ED Course. Radiology: ordered. Decision-making details documented in ED Course. ECG/medicine tests: ordered and independent interpretation performed. Decision-making details documented in ED Course. Discussion of management or test interpretation with external provider(s): N/a Risk OTC drugs. Prescription drug management. Risk Details: Unremarkable OBS in ED. Findings and differential diagnosis discussed with the patient and family, including but not limited to heart related syncope. I have recommended and offered further evaluation by hospitalization. The patient acknowledges and understands my recommendations and clinical concerns, as well as the risks of worsening condition or misdiagnosis from not being hospitalized. The patient declines hospitalization. The patient appears to have appropriate medical decision making capacity.Symptomatic mgmt. Return precautions discussed. Flowsheet Documentation: Scoring Tools: No data recorded Disposition/Condition: ED Disposition ED Disposition Discharge Condition Stable Comment -- Discharge Medications: Patient's Medications START taking these medications ONDANSETRON 4 MG TABLET 1 or 2 tablets every 8 hours as needed for nausea TRAMADOL 50 MG TABLET Take 1 tablet by mouth every 6 (six) hours as needed (pain). Indications: acute pain CONTINUE taking these medications which have NOT CHANGED AMLODIPINE 10 MG TABLET Take 1 tablet by mouth in the morning. CARVEDILOL 25 MG TABLET Take 1 tablet by mouth in the morning and 1 tablet in the evening. Take with meals. LOSARTAN 100 MG TABLET Take 1 tablet by mouth in the morning. SILDENAFIL 100 MG TABLET TAKE 1 TABLET BY MOUTH 30 MINUTES BEFORE SEXUAL ACTIVITY. MAX 1 PER DAY START taking Modified Medications as Prescribed No medications on file STOP taking these medications No medications on file Follow-up: PCP Electronically signed by: Rashid Prajapati MD 10/03/242001 Rashid Prajapati MD 10/03/242003 PATIAL IMAGERY INTELLIGENCE ANALYST [facility]Okytvi4151-22-04 17:37:00 Patient to ED for fall with positive LOC unknown how long with head swelling and contusion. Patient was walking from bathroom at home and walking and fell. Patient doesn't remember the fall. Has no pain at this time. Trauma activation initiated per protocol. PATIAL IMAGERY INTELLIGENCE ANALYST Wade Smith [facility], [facility]–[id number] 15:04:47* [facility] 2024-07-14 15:04:47* Franny House MD - 07/14/2024 2:30 PM GEOSPATIAL IMAGERY INTELLIGENCE ANALYST History of Present Illness HPI No side effects on the Aricept, weight is stable on 5 mg Aricept, increase to 10 mg today. Allergies as of 07/14/2024 (No Known Allergies) has a current medication list which includes the following prescription(s): acetaminophen-codeine, amlodipine, carvedilol, prednisone, and donepezil. Vitals:07/14/24 1444 BP: 158/84 Pulse: 54 Resp: 16 Temp: 36.9 ?C (98.4 ?F) SpO2: 97% Neurological Exam Mental Status Awake and alert. Speech is normal. Cranial NervesCN II: Visual acuity is normal. CN III, IV, : Extraocular movements intact bilaterally. Pupils equal round and reactive to light bilaterally. CN VII: Full and symmetric facial movement. CN XII: Tongue midline without atrophy or fasciculations. MotorStrength is 5/5 throughout all four extremities. SensoryLight touch is normal in upper and lower extremities. Temperature is normal in upper and lower extremities. Vibration is normal in upper and lower extremities. ReflexesDeep tendon reflexes: Symmetric. GaitCasual gait is normal including stance, stride, and arm swing. Results for orders placed or performed in visit on 05/05/24 Complete Blood Count w/Diff and Platelet Collection Time: 05/08/24 8:14 AM Result Value Ref Range WBC X 10x3 6.5 3.8 - 10.8 Thousand/uL RBC X 10x6 5.11 4.20 - 5.80 Million/uL Hgb 14.9 13.2 - 17.1 g/dL Hct 44.5 38.5 - 50.0 % MCV 87.1 80.0 - 100.0 fL MCH 29.2 27.0 - 33.0 pg MCHC 33.5 32.0 - 36.0 g/dL RDW 13.9 11.0 - 15.0 % Platelet 199 140 - 400 Thousand/uL MPV 11.9 7.5 - 12.5 fL Segs # 4,238 1,500 - 7,800 cells/uL Lymphocytes # 1,547 850 - 3,900 cells/uL Monocytes # 371 200 - 950 cells/uL Eosinophils # 312 15 - 500 cells/uL Basophils # 33 0 - 200 cells/uL Segs % 65.2 % Lymphocytes 23.8 % Monocytes 5.7 % Eos % 4.8 % Basophils 0.5 % Comprehensive Metabolic Panel Collection Time: 05/08/24 8:14 AM Result Value Ref Range Glucose Lvl 94 65 - 99 mg/dL BUN 15 7 - 25 mg/dL Creatinine Lvl 0.73 0.70 - 1.35 mg/dL eGFR 98 > OR = 60 mL/min/1.73m2 B/C Ratio SEE NOTE: 6 - 22 (calc) Sodium Lvl 138 135 - 146 mmol/L Potassium Lvl 3.9 3.5 - 5.3 mmol/L Chloride Lvl 104 98 - 110 mmol/L CO2 Lvl 25 20 - 32 mmol/L Calcium Lvl 8.6 8.6 - 10.3 mg/dL Total Protein 6.5 6.1 - 8.1 g/dL Albumin Lvl 4.0 3.6 - 5.1 g/dL Globulin 2.5 1.9 - 3.7 g/dL (calc) A/G Ratio 1.6 1.0 - 2.5 (calc) Bili Total 1.1 0.2 - 1.2 mg/dL Alk Phos 69 35 - 144 U/L AST 13 10 - 35 U/L ALANINE AMINOTRANSFERASE 9 9 - 46 U/L Copper Level Collection Time: 05/08/24 8:14 AM Result Value Ref Range Copper Lvl 75 70 - 175 mcg/dL C-Reactive Protein Collection Time: 05/08/24 8:14 AM Result Value Ref Range C-Reactive Protein <3.0 <8.0 mg/L Sedimentation Rate Collection Time: 05/08/24 8:14 AM Result Value Ref Range Sed Rate 2 0 - 20 mm/h Thyroid Stimulating Hormone w/ Reflex Free T4 Collection Time: 05/08/24 8:14 AM Result Value Ref Range TSH 1.66 0.40 - 4.50 mIU/L Vitamin B1 Level Collection Time: 05/08/24 8:14 AM Result Value Ref Range VITAMIN B1 (THIAMINE) WHOLE BLOOD 112 78 - 185 nmol/L Vitamin B12 Level Collection Time: 05/08/24 8:14 AM Result Value Ref Range Vitamin B12 Lvl 209 200 - 1,100 pg/mL Zinc Level Collection Time: 05/08/24 8:14 AM Result Value Ref Range Zinc Lvl 59 (L) 60 - 130 mcg/dL No MRI head results found for the past 12 months Assessment & PlanDiagnoses and all orders for this visit: MCI (mild cognitive impairment) Other orders - donepezil (Aricept) 10 MG tablet; Take 1 tablet by mouth at bedtime. Increase Aricept PATIAL IMAGERY INTELLIGENCE ANALYST [id number] 15:04:47 [facility] HospitalBiakbtd4439-34-03 15:04:47 Diagnosis MCI (mild cognitive impairment) - Primary Mild cognitive impairment, so stated [facility] HospitalCczfuos4305-15-96 15:04:47 [facility] HospitalTfpldzc6876-36-16 23:56:50Upcoming Encounters Health Maintenance Due Date Last Done Comments CT Colonography 1955 Colonoscopy 1955 Colorectal Cancer Screening 1955 FIT-DNA 1955 FIT 1955 FOBT 1955 Lipid Panel 1955 Medicare Annual Wellness (AWV) 1955 Sigmoidoscopy 1955 Pneumococcal Vaccine: 65+ Ye ars (1 of 2 - PCV) 1961 DTaP/Tdap/Td Vaccines (1 - Tdap) 1974 Zoster Vaccines (1 of 2) 2005 Respiratory Syncytial Virus (RSV) or >=60 (1 - 1-dose 60+ series) 2015 Influenza Vaccine (#1) 2024 HIB Vaccines Aged Out No longer eligi ble based on patient's age to complete this topic HPV Vaccines Aged Out No longer eligi ble based on patient's age to complete this topic Hepatitis A Vaccines Aged Out No long er eligible based on patient's age to complete this topic Hepatitis B Vaccines Aged Out No long er eligible based on patient's age to complete this topic IPV Vaccines Aged Out No longer eligi ble based on patient's age to complete this topic Meningococcal Vaccine Aged Out No priscilla wendy eligible based on patient's age to complete this topic Rotavirus Vaccines Aged Out No longer eligible based on patient's age to complete this topic [facility] [id number] 23:56:50 [place] [id number] 11:52:34 Noted [facility] [id number] 08:51:59 The Pharmacy has dispensed a 90 day supply to the patient with the patient's approval Donepezil 5mg tab. [facility]Houston [facility] HospitalZxjdlzg0701-71-20 17:13:52* [place] [id number] 17:13:52* Franny House MD - 06/02/2024 2:30 PM CDT History of Present Illness HPI Labs are normal, brain MRI atrophy. Patient with mild cognitive impairment. Reviewed options. We recommended starting Aricept 5 mg. Allergies as of 06/02/2024 (No Known Allergies) has a current medication list which includes the following prescription(s): acetaminophen-codeine, amlodipine, carvedilol, prednisone, and donepezil. Vitals:06/02/24 1441 BP: 154/86 Pulse: 57 Resp: 16 Temp: 37.2 ?C (99 ?F) SpO2: 98% Neurological Exam Mental Status Awake and alert. Speech is normal. Cranial NervesCN II: Visual acuity is normal. CN III, IV, : Extraocular movements intact bilaterally. Pupils equal round and reactive to light bilaterally. CN VII: Full and symmetric facial movement. CN XII: Tongue midline without atrophy or fasciculations. MotorStrength is 5/5 throughout all four extremities. SensoryLight touch is normal in upper and lower extremities. Temperature is normal in upper and lower extremities. Vibration is normal in upper and lower extremities. ReflexesDeep tendon reflexes: Symmetric. GaitCasual gait is normal including stance, stride, and arm swing. Results for orders placed or performed in visit on 05/05/24 Complete Blood Count w/Diff and Platelet Collection Time: 05/08/24 8:14 AM Result Value Ref Range WBC X 10x3 6.5 3.8 - 10.8 Thousand/uL RBC X 10x6 5.11 4.20 - 5.80 Million/uL Hgb 14.9 13.2 - 17.1 g/dL Hct 44.5 38.5 - 50.0 % MCV 87.1 80.0 - 100.0 fL MCH 29.2 27.0 - 33.0 pg MCHC 33.5 32.0 - 36.0 g/dL RDW 13.9 11.0 - 15.0 % Platelet 199 140 - 400 Thousand/uL MPV 11.9 7.5 - 12.5 fL Segs # 4,238 1,500 - 7,800 cells/uL Lymphocytes # 1,547 850 - 3,900 cells/uL Monocytes # 371 200 - 950 cells/uL Eosinophils # 312 15 - 500 cells/uL Basophils # 33 0 - 200 cells/uL Segs % 65.2 % Lymphocytes 23.8 % Monocytes 5.7 % Eos % 4.8 % Basophils 0.5 % Comprehensive Metabolic Panel Collection Time: 05/08/24 8:14 AM Result Value Ref Range Glucose Lvl 94 65 - 99 mg/dL BUN 15 7 - 25 mg/dL Creatinine Lvl 0.73 0.70 - 1.35 mg/dL eGFR 98 > OR = 60 mL/min/1.73m2 B/C Ratio SEE NOTE: 6 - 22 (calc) Sodium Lvl 138 135 - 146 mmol/L Potassium Lvl 3.9 3.5 - 5.3 mmol/L Chloride Lvl 104 98 - 110 mmol/L CO2 Lvl 25 20 - 32 mmol/L Calcium Lvl 8.6 8.6 - 10.3 mg/dL Total Protein 6.5 6.1 - 8.1 g/dL Albumin Lvl 4.0 3.6 - 5.1 g/dL Globulin 2.5 1.9 - 3.7 g/dL (calc) A/G Ratio 1.6 1.0 - 2.5 (calc) Bili Total 1.1 0.2 - 1.2 mg/dL Alk Phos 69 35 - 144 U/L AST 13 10 - 35 U/L ALANINE AMINOTRANSFERASE 9 9 - 46 U/L Copper Level Collection Time: 05/08/24 8:14 AM Result Value Ref Range Copper Lvl 75 70 - 175 mcg/dL C-Reactive Protein Collection Time: 05/08/24 8:14 AM Result Value Ref Range C-Reactive Protein <3.0 <8.0 mg/L Sedimentation Rate Collection Time: 05/08/24 8:14 AM Result Value Ref Range Sed Rate 2 0 - 20 mm/h Thyroid Stimulating Hormone w/ Reflex Free T4 Collection Time: 05/08/24 8:14 AM Result Value Ref Range TSH 1.66 0.40 - 4.50 mIU/L Vitamin B1 Level Collection Time: 05/08/24 8:14 AM Result Value Ref Range VITAMIN B1 (THIAMINE) WHOLE BLOOD 112 78 - 185 nmol/L Vitamin B12 Level Collection Time: 05/08/24 8:14 AM Result Value Ref Range Vitamin B12 Lvl 209 200 - 1,100 pg/mL Zinc Level Collection Time: 05/08/24 8:14 AM Result Value Ref Range Zinc Lvl 59 (L) 60 - 130 mcg/dL No MRI head results found for the past 12 months Assessment & PlanDiagnoses and all orders for this visit: MCI (mild cognitive impairment) with memory loss Other orders - donepezil (Aricept) 5 MG tablet; Take 1 tablet by mouth at bedtime. Start Aricept 5 mg at night. Risks, benefits, side effects reviewed with patient. [facility]2024-09-24 17:13:52Upcoming Encounters Health Maintenance Due Date Last Done Comments CT Colonography 1955 Colonoscopy 1955 Colorectal Cancer Screening 1955 FIT-DNA 1955 FIT 1955 FOBT 1955 Lipid Panel 1955 Medicare Annual Wellness (AWV) 1955 Sigmoidoscopy 1955 Pneumococcal Vaccine: 65+ Ye ars (1 of 2 - PCV) 1961 DTaP/Tdap/Td Vaccines (1 - Tdap) 1974 Zoster Vaccines (1 of 2) 2005 Respiratory Syncytial Virus (RSV) or >=60 (1 - 1-dose 60+ series) 2015 Influenza Vaccine (#1) 2024 HIB Vaccines Aged Out No longer eligi ble based on patient's age to complete this topic HPV Vaccines Aged Out No longer eligi ble based on patient's age to complete this topic Hepatitis A Vaccines Aged Out No long er eligible based on patient's age to complete this topic Hepatitis B Vaccines Aged Out No long er eligible based on patient's age to complete this topic IPV Vaccines Aged Out No longer eligi ble based on patient's age to complete this topic Meningococcal Vaccine Aged Out No priscilla wendy eligible based on patient's age to complete this topic Rotavirus Vaccines Aged Out No longer eligible based on patient's age to complete this topic [facility] [id number] 17:13:52 Diagnosis MCI (mild cognitive impairment) with memory loss - Primary Mild cognitive impairment, so stated [facility] HospitalLayszej4511-50-07 17:13:52 [facility] HospitalUwuvrce6558-86-93 10:55:08* Imaging (Routine) - Incomplete Specialty Diagnoses / Procedures Referred By Manny t Referred To Contact Radiology Diagnoses Memory loss Balance problem Other headache syndrome Pain of left hip Procedures MRI brain wo IV contrast Franny House MD [address] [place] [id number] Referral ID Status Reason Start Date Expiration Date V isits Requested Visits Authorized [id number] Incomplete 05/05/2024 11/01/2024 1 1 [facility] HospitalBbhqhkb7183-95-37 10:55:08* [facility] HospitalKwulpks5921-90-29 10:55:08* Franny House MD - 05/05/2024 9:30 AM CDT Subjective Mary Anne Curtis Sr. is a 69 y.o. male presenting with memory loss. History of Present Illness HPI 69-year-old gentleman here with his for further evaluation of memory problems. Ongoing 8 months to a year. He does not really like going to doctors so he has not really had any studies. His insisted that his memory is poor and that he have it evaluated. Issues with short-term memory loss, difficulty paying bills, got lost driving. All very concerning symptoms. No severe behavioral problems. Patient does not really think he has memory problems when I inquire about that directly. Here for further evaluation. Left hip pain more longstanding ObjectivePast Medical History He has no past medical history on file. Surgical HistoryHe has a past surgical history that includes Back surgery and Cholecystectomy. Family HistoryFamily History: Problem Relation Name Age of Onset Cancer Mother Hypertension Mother Cancer Father Diabetes Sister Hypertension Sister Heart disease Sister No Known Problems Brother No Known Problems Mother's Sister No Known Problems Mother's Brother No Known Problems Father's Sister No Known Problems Father's Brother No Known Problems Maternal Grandmother No Known Problems Maternal Grandfather No Known Problems Paternal Grandmother No Known Problems Paternal Grandfather No Known Problems Other Social History He reports that he has been smoking cigarettes. He has never used smokeless tobacco. He reports that he does not drink alcohol and does not use drugs. AllergiesPatient has no known allergies. MedicationsCurrent Outpatient Medications Medication Sig Dispense Refill acetaminophen-codeine (Tylenol w/ Codeine #3) 300-30 MG tablet Take 1 tablet by mouth 2 times a day as needed for pain. amLODIPine (Norvasc) 10 MG tablet Take 10 mg by mouth every morning. carvedilol (Coreg) 25 MG tablet Take 25 mg by mouth in the morning and 25 mg in the evening. Take after meals. predniSONE (Deltasone) 20 MG tablet TAKE 3 TABLETS BY MOUTH EVERY DAY FOR 3 DAYS THEN TAKE 2 TABLETS BY MOUTH EVERY DAY FOR 3 DAYS THEN TAKE 1 TABLET BY MOUTH EVERY DAY FOR 3 DAYS No current facility-administered medications for this visit. Review of Systems Musculoskeletal: Positive for gait problem and myalgias. Neurological: Positive for headaches. Psychiatric/Behavioral: Positive for confusion. Last Recorded Vitals Vitals: 05/05/24 0927 BP: (!) 157/91 Pulse: 61 Resp: 16 Temp: 36.8 ?C (98.2 ?F) SpO2: 98% Physical ExamVitals reviewed. Constitutional: Appearance: Normal appearance. HENT: Head: Normocephalic and atraumatic. Eyes: General: Lids are normal. Extraocular Movements: Extraocular movements intact. Pupils: Pupils are equal, round, and reactive to light. Neck: Vascular: No carotid bruit. Cardiovascular: Rate and Rhythm: Normal rate and regular rhythm. Pulmonary: Effort: Pulmonary effort is normal. Breath sounds: Normal breath sounds. Abdominal: General: Bowel sounds are normal. Musculoskeletal: General: Tenderness present. Cervical back: Normal range of motion and neck supple. Comments: Left hip Neurological: Motor: Motor strength is normal. Coordination: Coordination is intact. Deep Tendon Reflexes: Reflexes are normal and symmetric. Psychiatric: Mood and Affect: Mood normal. Speech: Speech normal. Behavior: Behavior normal. Neurological ExamMental Status Awake, alert and oriented to person, place and time. Recalls 3 of 3 objects immediately. At 5 minutes recalls 2 of 3 objects. Recalls 2 of 3 objects with prompting. Speech is normal. Able to name objects and name parts of objects. Difficulty spelling words backwards. 3/5. MMSE score: 25. Oriented to year, month, state, town 5/6 pics. Cranial NervesCN II: Visual acuity is normal. Visual carty full to confrontation. CN III, IV, : Extraocular movements intact bilaterally. Normal lids and orbits bilaterally. Pupils equal round and reactive to light bilaterally. CN V: Facial sensation is normal. CN VII: Full and symmetric facial movement. CN VIII: Hearing is normal. CN IX, X: Palate elevates symmetrically. Normal gag reflex. CN XI: Shoulder shrug strength is normal. CN XII: Tongue midline without atrophy or fasciculations. MotorNormal muscle bulk throughout. Normal muscle tone. No abnormal involuntary movements. Strength is 5/5 throughout all four extremities. SensorySensation is intact to light touch, pinprick, vibration and proprioception in all four extremities. ReflexesDeep tendon reflexes are 2+ and symmetric in all four extremities. Coordination [id number], rapid alternating movements and cnmr-gl-ahsk normal bilaterally without dysmetria. Gait Unsteady, small steps. Relevant Resultsnone Assessment/Plan Diagnoses and all orders for this visit: Memory loss - Complete Blood Count w/Diff and Platelet; Future - Comprehensive Metabolic Panel; Future - Copper Level; Future - C-Reactive Protein; Future - Sedimentation Rate; Future - Thyroid Stimulating Hormone w/ Reflex Free T4; Future - Vitamin B1 Level; Future - Vitamin B12 Level; Future - Zinc Level; Future - XR chest 2 views; Future - MRI brain wo IV contrast; Future - XR hip 2-3 views left; Future Balance problem - Complete Blood Count w/Diff and Platelet; Future - Comprehensive Metabolic Panel; Future - Copper Level; Future - C-Reactive Protein; Future - Sedimentation Rate; Future - Thyroid Stimulating Hormone w/ Reflex Free T4; Future - Vitamin B1 Level; Future - Vitamin B12 Level; Future - Zinc Level; Future - XR chest 2 views; Future - MRI brain wo IV contrast; Future - XR hip 2-3 views left; Future Other headache syndrome - Complete Blood Count w/Diff and Platelet; Future - Comprehensive Metabolic Panel; Future - Copper Level; Future - C-Reactive Protein; Future - Sedimentation Rate; Future - Thyroid Stimulating Hormone w/ Reflex Free T4; Future - Vitamin B1 Level; Future - Vitamin B12 Level; Future - Zinc Level; Future - XR chest 2 views; Future - MRI brain wo IV contrast; Future - XR hip 2-3 views left; Future Pain of left hip - Complete Blood Count w/Diff and Platelet; Future - Comprehensive Metabolic Panel; Future - Copper Level; Future - C-Reactive Protein; Future - Sedimentation Rate; Future - Thyroid Stimulating Hormone w/ Reflex Free T4; Future - Vitamin B1 Level; Future - Vitamin B12 Level; Future - Zinc Level; Future - XR chest 2 views; Future - MRI brain wo IV contrast; Future - XR hip 2-3 views left; Future MMSE 25/30. Reviewed with the patient his memory loss is excessive for his age. Check brain MRI, labs, chest x-ray plain film of the left hip. [facility]2024-08-27 10:55:08Upcoming Encounters Scheduled Orders Name Type Priority Associated Diagnoses Orde r Schedule Complete Blood Count w/Diff and Platelet Lab Routine Memory loss Balance problem Other headache syndrome Pain of left hip Expected: 05/05/2024 (Approximate), Expires: 05/05/2025 Comprehensive Metabolic Panel Lab Routine Memory loss Balance problem Other headache syndrome Pain of left hip Expected: 05/05/2024 (Approximate), Expires: 05/05/2025 Copper Level Lab Routine Memory loss Balance problem Other headache syndrome Pain of left hip Expected: 05/05/2024 (Approximate), Expires: 05/05/2025 C-Reactive Protein Lab Routine Memory loss Balance problem Other headache syndrome Pain of left hip Expected: 05/05/2024 (Approximate), Expires: 05/05/2025 Sedimentation Rate Lab Routine Memory loss Balance problem Other headache syndrome Pain of left hip Expected: 05/05/2024 (Approximate), Expires: 05/05/2025 Thyroid Stimulating Hormone w/ Reflex Free T4 Lab Routine Memory loss Balance problem Other headache syndrome Pain of left hip Expected: 05/05/2024 (Approximate), Expires: 05/05/2025 Vitamin B1 Level Lab Routine Memory loss Balance problem Other headache syndrome Pain of left hip Expected: 05/05/2024 (Approximate), Expires: 05/05/2025 Vitamin B12 Level Lab Routine Memory loss Balance problem Other headache syndrome Pain of left hip Expected: 05/05/2024 (Approximate), Expires: 05/05/2025 Zinc Level Lab Routine Memory loss Balance problem Other headache syndrome Pain of left hip Expected: 05/05/2024 (Approximate), Expires: 05/05/2025 XR chest 2 views Imaging Routine Memory loss Balance problem Other headache syndrome Pain of left hip Expected: 05/05/2024, Expires: 05/05/2025 MRI brain wo IV contrast Imaging Routine Memory loss Balance problem Other headache syndrome Pain of left hip Expected: 05/05/2024, Expires: 05/05/2025 XR hip 2-3 views left Imaging Routine Memory loss Balance problem Other headache syndrome Pain of left hip Expected: 05/05/2024, Expires: 05/05/2025 Health Maintenance Due Date Last Done Comments CT Colonography 1955 Colonoscopy 1955 Colorectal Cancer Screening 1955 FIT-DNA 1955 FIT 1955 FOBT 1955 Lipid Panel 1955 Medicare Annual Wellness (AWV) 1955 Sigmoidoscopy 1955 Pneumococcal Vaccine: 65+ Ye ars (1 of 2 - PCV) 1961 DTaP/Tdap/Td Vaccines (1 - Tdap) 1974 Zoster Vaccines (1 of 2) 2005 Respiratory Syncytial Virus (RSV) or >=60 (1 - 1-dose 60+ series) 2015 Influenza Vaccine (#1) 2024 HIB Vaccines Aged Out No longer eligi ble based on patient's age to complete this topic HPV Vaccines Aged Out No longer eligi ble based on patient's age to complete this topic Hepatitis A Vaccines Aged Out No long er eligible based on patient's age to complete this topic Hepatitis B Vaccines Aged Out No long er eligible based on patient's age to complete this topic IPV Vaccines Aged Out No longer eligi ble based on patient's age to complete this topic Meningococcal Vaccine Aged Out No priscilla wendy eligible based on patient's age to complete this topic Rotavirus Vaccines Aged Out No longer eligible based on patient's age to complete this topic [place] [id number] 10:55:08 Diagnosis Memory loss - Primary Balance problem Abnormality of gait Other headache syndrome Pain of left hip [place] [id number] 10:55:08 [place] [id number] 20:07:41 Dr Ruano patient IM-CARDIOVASCULAR DISEASE [facility]2023-08-29 09:41:41 Medical records received via fax from Dr Joseph and placed in Dr. Sullivan's folder to be reviewed. Eloina Oliva [facility]Elqgyh0486-07-24 08:29:02 Images from the original note were not included. WILLY faxed to Dr. Rob Ruano, MD Zi P Cardiology Nurse Please fax my note to PCP Dr. Joseph in [place] Allison Yap [facility], [facility]Huhtym7801-29-48 08:12:20 90 day conversion notification. Placed in provider's box. Stuart SeoThe Surgical Hospital at SouthwoodsWrgwpw9026-06-29 15:40:00Addended by: AJRROD WEST on: 05/03/2023 08:14 AM Modules accepted: Orders Jarrod West MAThe Surgical Hospital at Southwoods
[2024-12-24] MEDS ORDERED: ONDANSETRON 4 MG/2 ML VIAL ONE (03:45)
[2024-12-24] MEDS ORDERED: NA CHLORIDE 0.9% 500 ML ONE ×2 (03:45→06:07)
[2024-12-24] MEDS ORDERED: MORPHINE 2 MG/ML SYR ONE ×3 (03:45→18:36)
[2024-12-24 04:06] LABS: Absolute Basophils 0.1 K/uL (0-0.5); Absolute Eosinophils 0.1 K/uL (0-0.5); Absolute Lymphocytes (CBC) 0.6 K/uL (0.7-4.9); Absolute Monocytes 0.8 K/uL (0.1-1.3); Absolute Neutrophil 13.3 K/uL (1.8-8.0); Basophils % 0.6 % (0-1.3); Eosinophils % 0.7 % (0-4.4); Hematocrit 42.9 % (39.6-49.0); Hemoglobin 14.8 g/dL (13.6-17.9); Lymphocytes % 3.9 % (15.3-44.8); MCH 29.3 pg (27.0-35.0); MCHC 34.6 g/dL (32.0-36.0); MCV 84.8 fL (80-100); MPV 9.5 fL (7.6-11.3); Monocytes % 5.7 % (3.3-12.3); Neutrophils % 89.1 % (41.7-73.7); Platelets 187 thou/uL (152-406); RBC Red Blood Cell Count 5.06 M/uL (4.33-5.43)
[2024-12-24 04:14] LABS: Albumin 3.6 g/dL (3.4-5.0); Anion Gap 10.4 mEq/L (5.0-15.0); Bilirubin Total 1.9 mg/dL (0.2-1.0); Globulin 3.6 g/dL (2.3-3.5); Magnesium 1.9 mg/dL (1.6-2.4); Potassium 3.4 mEq/L (3.5-5.1); Protein, Total 7.2 g/dL (6.4-8.2)
[2024-12-24 05:06] LABS: Band Neutrophils 16 % (0-1); Blood Morphology Comment NOT SEEN (NOT SEEN); Differential Total Cells Count 100; Eosinophils 1 % (0-3); Lymphocytes 3 % (15-42); Monocytes 3 % (0-10); Platelet Estimate ADEQ; Reactive Lymphocytes 2 %; Segmented Neutrophils 75 % (40-80)
[2024-12-24 05:41] LABS: Specific Gravity > 1.030 (1.005-1.030); Sqamous Epithelial <5 /HPF (None Seen); Urine Bacteria None Seen /HPF (<20); Urine Bilirubin NEGATIVE (Negative); Urine Blood Trace (Negative); Urine Clarity Turbid (Clear); Urine Color Yellow (Yellow); Urine Culture Reflex Order NOT NEEDED; Urine Glucose TRACE (Negative); Urine Ketones NEGATIVE (Negative); Urine Microscopic Reflex YN ORDER UMIC; Urine Mucus 2+ /HPF (None Seen); Urine Nitrite NEGATIVE (Negative); Urine Protein 2+ (Negative); Urine RBC <5 /HPF (None Seen); Urine Urobilinogen 1+ (Normal); Urine WBC <5 /HPF (<5); Urine pH 6.5 (5.0-7.0)
--- NOTE | 2024-12-24 05:43 | RAD REPORT ---
EXAM: CT Abdomen and Pelvis With Intravenous Contrast CLINICAL HISTORY: The patient is 69 years old and is Male; left lower abdomen pain TECHNIQUE: Axial computed tomography images of the abdomen and pelvis with intravenous contrast. Sagittal and coronal reformatted images were created and reviewed. This CT exam was performed using one or more of the following dose reduction techniques: automated exposure control, adjustmen t of the mA and/or kV according to patient size, and/or use of iterative reconstruction technique. COMPARISON: No relevant prior studies available. FINDINGS: Lung bases: Unremarkable. No mass. No consolidation. ABDOMEN: Liver: Unremarkable. No mass. Gallbladder and bile ducts: Gallbladder is surgically absent. No ductal dilation. Pancreas: Unremarkable. No mass. No ductal dilation. Spleen: Unremarkable. No splenomegaly. Adrenals: Unremarkable. No mass. Kidneys and ureters: Unremarkable. No solid mass. No hydronephrosis. Stomach and bowel: Peridiverticular stranding involving the sigmoid colon consistent with diverti culitis. There is some adjacent extraluminal air/gas consistent with perforation. No obstruction. PELVIS: Appendix: No findings to suggest acute appendicitis. Bladder: There may be some mild diffuse bladder wall thickening, but the bladder is relatively no ndistended limiting evaluation. Reproductive: Unremarkable as visualized. ABDOMEN and PELVIS: Intraperitoneal space: See above. Bones/joints: No acute fracture. No dislocation. Soft tissues: Unremarkable. Vasculature: Unremarkable. No abdominal aortic aneurysm. Lymph nodes: Unremarkable. No enlarged lymph nodes. * A single impression for all exams can be found at the end of this report EXAM: CT Head Without Intravenous Contrast CLINICAL HISTORY: The patient is 69 years old and is Male; left lower abdomen pain TECHNIQUE: Axial computed tomography images of the head/brain without intravenous contrast. Sagit obdulia and coronal reformatted images were created and reviewed. This CT exam was performed using one or more of the following dose reduction techniques: automated exposure control, adjustment of t he mA and/or kV according to patient size, and/or use of iterative reconstruction technique. COMPARISON: No relevant prior studies available. FINDINGS: Brain: Mild nonspecific white matter changes likely related to chronic microvascular ischemic dis ease. No hemorrhage. Ventricles: Unremarkable. No ventriculomegaly. Bones/joints: Unremarkable. No acute fracture. Soft tissues: Unremarkable. Sinuses: Unremarkable as visualized. Mastoid air cells: Unremarkable as visualized. No mastoid effusion. * A single impression for all exams can be found at the end of this report IMPRESSION: CT Abdomen and Pelvis With Intravenous Contrast: Peridiverticular stranding involving the sigmoid colon consistent with diverticulitis. There is rafi e adjacent extraluminal air/gas consistent with perforation. CT Head Without Intravenous Contrast: No acute intracranial abnormality. Electronically signed by: Stefano Gonzales MD 12/24/2024 05:37 AM CDT RP 8 Due to temporary technical issues with the PACS/[employer] reporting system, reports are being nivia d by the in-house radiologist without review as a courtesy to ensure prompt reporting the interpreting radiologist is fully responsible for the content of the report. Transcribed Date/Time: 12/24/2024 5:43 AM
[2024-12-24] MEDS ORDERED: NA CHLORIDE 0.9% 0 ML ONE (06:07)
[2024-12-24] MEDS ORDERED: PIPERACIL/TAZO 3.375 GM VIAL IV ONE ×2 (06:08→18:25)
--- NOTE | 2024-12-24 06:12 | EDPHYS ---
Physician Documentation [facility] Name: Rupert Curtis Age: 69 yrs Sex: Male : 1955 Arrival Date: 12/24/2024 Time: 02:50 Bed 6 Private MD: WILMA Physician Christian Tuttle HPI: 12/24 03:25 This 69 yrs old Male presents to ER via Ambulatory with complaints of Lower cp abd pain. 03:25 The patient presents with abdominal pain in the lower abdomen. cp 03:25 Onset: The symptoms/episode began/occurred this morning. Duration: The episode is cp continuous. Associated signs and symptoms: Pertinent positives: difficulty and decreased urine output, Pertinent negatives: vomiting, diarrhea and/or constipation. 03:27 The patient's problem is reported as unsteady gait for months. reports having MRI and cp brain and consultation with neurology. Historical: - Allergies: 03:33 No Known Allergies; lg3 - Home Meds: 03:33 Unable to obtain [Active]; lg3 - PMHx: 03:33 Hypertensive disorder; dementia; lg3 - PSHx: 03:33 Cholecystectomy; foot; back; lg3 - Immunization history:: Adult Immunizations up to date. - Infectious Disease History:: Denies. - Social history:: Smoking status: Patient reports the use of cigarette tobacco products, smokes one-half pack cigarettes per day, Patient/guardian denies using alcohol, street drugs. ROS: 03:30 Constitutional: Negative for body aches, chills, fever, poor PO intake, cp 03:30 Cardiovascular: Negative for chest pain, cp 03:30 Respiratory: Negative for cough, shortness of breath, wheezing, cp 03:30 Eyes: Negative for injury, pain, redness, and discharge, cp 03:30 Abdomen/GI: Positive for abdominal pain, nausea, lower abdomen, Negative for diarrhea, constipation, black/tarry stool, rectal bleeding, 03:30 Neuro: Negative for altered mental status, dizziness, headache, weakness, 03:30 All other systems are negative, Exam: 03:33 Constitutional: The patient appears in no acute distress, alert, awake, cp non-diaphoretic, non-toxic, well developed, well nourished, 03:33 Head/Face: Normocephalic, atraumatic. cp 03:33 Eyes: Periorbital structures: appear normal, Conjunctiva: normal, no exudate, no injection, Sclera: no appreciated abnormality, Lids and lashes: appear normal, bilaterally, 03:33 ENT: External ear(s): are unremarkable, Nose: is normal, Mouth: Lips: moist, Oral mucosa: moist, Posterior pharynx: Airway: no evidence of obstruction, patent, 03:33 Neck: ROM/movement: is normal, is supple, without pain, no range of motions limitations, 03:33 Chest/axilla: Inspection: normal, 03:33 Cardiovascular: Rate: normal, Rhythm: regular, Edema: is not appreciated, JVD: is not appreciated, 03:33 Respiratory: the patient does not display signs of respiratory distress, Respirations: normal, no use of accessory muscles, no retractions, labored breathing, is not present, Breath sounds: are clear throughout, no decreased breath sounds, no stridor, no wheezing, 03:33 Abdomen/GI: Inspection: abdomen appears normal, Bowel sounds: active, all quadrants, Palpation: soft, in all quadrants, moderate abdominal tenderness, in the suprapubic area and left lower quadrant, rebound tenderness, is not appreciated, voluntary guarding, is elicited in the suprapubic area and left lower quadrant, 03:33 Back: CVA tenderness, is absent, 03:33 Neuro: Orientation: to person, place, situation, Mentation: able to follow commands, Cerebellar function: Romberg testing is abnormal, left arm with slight drift, mild difficulty with left leg, Motor: moves all fours, Sensation: no obvious gross deficits, 03:49 ECG was reviewed by the Attending Physician. cp 06:10 Radiologist reports: report reviewed cp Vital Signs: 03:26 BP 149 / 91; Pulse 90; Resp 17 S; Temp 98.5(O); Pulse Ox 97% on R/A; Weight 63.5 kg lg3 (R); Height 5 ft. 2 in. ; Pain 8/10; 06:30 BP 138 / 94; Pulse 89; Resp 16 S; Pulse Ox 97% on R/A; lg3 03:26 Body Mass Index 25.61 (63.50 kg, 157.48 cm) lg3 03:26 Pain Scale: Adult lg3 MDM: 03:03 Medical Screening Exam initiated cp 04:00 Differential diagnosis: metabolic disorder, appendicitis, bowel obstruction, cp cholecystitis, Cholelithiasis, diverticulitis, non-specific abd pain, pancreatitis, Prostatitis, Pyelonephritis, Testicular Torsion, Ureterolithiasis, urinary tract infection. 06:15 Data reviewed: vital signs, nurses notes, lab test result(s), EKG, radiologic studies, cp CT scan, plain films, and as a result, I will admit patient. 06:15 Management of patient was discussed with the following: Wood Crafter: DR Knox will cp consult for general surgery and Soraya Irving LEGAL FINANCIAL SPECIALIST will admit to hospitalist service after discussion. I considered the following discharge prescriptions or medication management in the emergency department Medications were administered in the Emergency Department. See MAR. Independent interpretation of the following test(s) in the Emergency Department EKG: See my EKG interpretation above. Care significantly affected by the following chronic conditions: Hypertension. Counseling: I had a detailed discussion with the patient and/or guardian regarding the historical points, exam findings, and any diagnostic results supporting the discharge/admit diagnosis, lab results, radiology results, the need for further work-up and treatment in the hospital. Response to treatment: the patient's symptoms have mildly improved after treatment. 12/24 03:21 Order name: CBC with Diff; Complete Time: 05:47 cp 12/24 04:20 Interpretation: WBC 14.90; CALLI% 89.1; LYM% 3.9; NEUT A 13.3; LYMA 0.6. cp 12/24 03:21 Order name: CMP; Complete Time: 04:20 cp 12/24 04:20 Interpretation: Normal except: K 3.4; GLUC 122; BUN 19; GFR 86; AST 11; BILIT 1.9; CA cp 8.4; GLOB 3.6; A/G 1.0. 12/24 03:21 Order name: Lipase; Complete Time: 04:20 cp 12/24 03:21 Order name: Urinalysis w/ reflexes; Complete Time: 05:47 cp 12/24 05:47 Interpretation: Normal except: UCLA Turbid; Urine SG > 1.030; UGLUC TRACE; UBLD Trace; cp UPROT 2+; UUROB 1+; UESTR 25. 12/24 03:21 Order name: Magnesium; Complete Time: 04:20 cp 12/24 04:18 Order name: Manual Differential; Complete Time: 05:47 EDMS 12/24 05:48 Interpretation: Normal except: BANDS [F] 16; LYM 3. cp 12/24 05:55 Order name: Lactate w/ 2H reflex if indic. cp 12/24 05:55 Order name: Blood Culture Adult (2) cp 12/24 09:07 Order name: Basic Metabolic Panel EDMS 12/24 09:07 Order name: Basic Metabolic Panel EDMS 12/24 09:07 Order name: Basic Metabolic Panel EDMS 12/24 09:07 Order name: Basic Metabolic Panel EDMS 12/24 09:07 Order name: Basic Metabolic Panel EDMS 12/24 09:07 Order name: Basic Metabolic Panel EDMS 12/24 09:07 Order name: CBC with Automated Diff EDMS 12/24 09:07 Order name: CBC with Automated Diff EDMS 12/24 09:07 Order name: CBC with Automated Diff EDMS 12/24 09:07 Order name: CBC with Automated Diff EDMS 12/24 09:07 Order name: CBC with Automated Diff EDMS 12/24 09:07 Order name: CBC with Automated Diff EDMS 12/24 09:07 Order name: Magnesium EDMS 12/24 09:07 Order name: Magnesium EDMS 12/24 09:07 Order name: Phosphorus EDMS 12/24 09:07 Order name: Phosphorus EDMS 12/24 03:35 Order name: CT Abd/Pelvis - IV Contrast Only; Complete Time: 05:47 cp 12/24 04:20 Order name: CT Head Brain wo Cont; Complete Time: 05:47 cp 12/24 03:21 Order name: EKG; Complete Time: 03:21 cp 12/24 03:21 Order name: IV Saline Lock; Complete Time: 03:36 cp 12/24 03:21 Order name: Labs collected and sent; Complete Time: 03:36 cp 12/24 03:21 Order name: EKG - Nurse/Tech; Complete Time: 04:05 cp 12/24 03:35 Order name: Bladder Scanner: pre and post void; Complete Time: 04:27 cp EC:49 Rate is 91 beats/min. Rhythm is regular. UT interval is normal. QRS interval is normal. cp QT interval is normal. T waves are Inverted in lead aVR. Interpreted by me. Reviewed by me. Administered Medications: 03:57 Drug: Ondansetron IVP 4 mg IVP once; over 2 minutes Route: IVP; Site: right antecubital;dd2 06:30 Follow up: Response: No adverse reaction lg3 03:57 Drug: morphine IVP or IV 2 mg IVP once over 4 mins Route: IVP; Infused Over: 4 mins; dd2 Site: right antecubital; 04:12 Follow up: Response: No adverse reaction dd2 03:57 Drug: NS 0.9% IV 500 ml 500 ml IV at 1 bolus once; to be given as a bolus over 30 dd2 minutes Volume: 500 ml; Route: IV; Rate: 1 bolus; Site: right antecubital; 05:00 Follow up: IV Status: Completed infusion; IV Intake: 500ml dd2 06:27 Drug: Piperacillin-Tazobactam IVPB 3.375 grams IVPB once over 60 mins; (mix in NS 100 lg3 mL) Route: IVPB; Infused Over: 60 mins; Site: right antecubital; 06:27 Drug: NS 0.9% IV 500 ml 500 ml IV at 1 bolus once; to be given as a bolus over 30 lg3 minutes Volume: 500 ml; Route: IV; Rate: 1 bolus; Site: right antecubital; Disposition: 14:52 Chart complete. cp Disposition Summary: 12/24/24 06:12 Hospitalization Ordered Notes: Hospitalization Status: Inpatient Admission cp Provider: Tiara Robbins cp Condition: Stable cp Problem: new cp Symptoms: have improved cp Bed/Room Type: Standard cp Location: Telemetry/MedSurg (Inpatient)(12/24/24 19:37) rv1 Room Assignment: 222(12/24/24 19:37) rv1 Diagnosis - Diverticulitis of Sigmoid Colon with Perforation cp Forms: - Medication Reconciliation Form cp - SBAR form cp - Leadership Thank You Letter cp Addendum: 12/26/2024 08:58 Co-signature as Attending Physician, Christian Tuttle MD I agree with the assessment and c patton plan of care. Signatures: Dispatcher [employer] EDMS Monika Kasper Corey, MD MD cha Page, Corey, PA PA cp Wanda Matos RN RN lg3 Baylee Wilson rv1 OZIEL VALVERDE RN RN dd2 Corrections: (The following items were deleted from the chart) 12/24 03:22 03:21 CBC+H.LAB.BRZ ordered. EDMS EDMS 03:22 03:21 COMPREHENSIVE METABOLIC PANEL+C.LAB.BRZ ordered. EDMS EDMS 03:22 03:21 LIPASE+C.LAB.BRZ ordered. EDMS EDMS 03:22 03:21 Urinalysis+U.LAB.BRZ ordered. EDMS EDMS 03:22 03:21 MAGNESIUM+C.LAB.BRZ ordered. EDMS EDMS 05:56 05:56 LACTATE+C.LAB.BRZ ordered. EDMS EDMS 05:56 05:56 BLOOD CULTURE*+BA.LAB.BRZ ordered. EDMS EDMS 10:16 06:12 Telemetry/MedSurg (Inpatient) cp bd 10:16 06:12 cp bd 14:49 06:00 Radiologist reports: report reviewed cp 19:37 10:16 [facility] ER HOLD bd rv1 19:37 10:16 ERHOLD- bd rv1
--- NOTE | 2024-12-24 06:12 | ER ---
Nurse's Notes [facility] Name: Rupert Curtis Age: 69 yrs Sex: Male : 1955 Arrival Date: 12/24/2024 Time: 02:50 Bed 6 Private MD: Diagnosis: Diverticulitis of Sigmoid Colon with Perforation Presentation: 12/24 03:26 Chief complaint: Patient states: lower abdominal/pelvic pain X2 hr. Coronavirus screen: lg3 Client denies travel out of the [place] in the last 14 days. At this time, the client does not indicate any symptoms associated with coronavirus-19. Ebola Screen: No symptoms or risks identified at this time. Initial Sepsis Screen: Does the patient meet any 2 criteria? No. Patient's initial sepsis screen is negative. Does the patient have a suspected source of infection? No. Patient's initial sepsis screen is negative. Risk Assessment: Do you want to hurt yourself or someone else? Patient reports no desire to harm self or others. Onset of symptoms was December 24, 2024. 03:26 Method Of Arrival: Ambulatory lg3 03:26 Acuity: MARGARET 3 lg3 Triage Assessment: 03:33 General: Appears in no apparent distress. uncomfortable, Behavior is calm, cooperative. lg3 Pain: Complains of pain in suprapubic area, right inguinal area and left inguinal area. EENT: No deficits noted. No signs and/or symptoms were reported regarding the EENT system. Neuro: No deficits noted. Hooper Agitation-Sedation Scale (RASS): 0 - Alert and Calm Level of Consciousness is awake, alert, obeys commands, Oriented to person, place, time, situation. Cardiovascular: No deficits noted. Denies chest pain, shortness of breath, Capillary refill < 3 seconds Clubbing of nail beds is absent JVD is absent Patient's skin is warm and dry. Respiratory: No deficits noted. Airway is patent Respiratory effort is even, unlabored, Respiratory pattern is regular, symmetrical, Breath sounds are clear bilaterally. GI: Abdomen is flat, non-distended, Bowel sounds present X 4 quads. Abd is soft X 4 quads Abdomen is tender to palpation in suprapubic area Reports lower abdominal pain. : No signs and/or symptoms were reported regarding the genitourinary system. Denies inability to void. Derm: No deficits noted. No signs and/or symptoms reported regarding the dermatologic system. Skin is intact, is healthy with good turgor, Skin is dry, Skin is normal, Skin temperature is warm. Musculoskeletal: No deficits noted. No signs and/or symptoms reported regarding the musculoskeletal system. Circulation, motion, and sensation intact. Range of motion: intact in all extremities. Historical: - Allergies: 03:33 No Known Allergies; lg3 - Home Meds: 03:33 Unable to obtain [Active]; lg3 - PMHx: 03:33 Hypertensive disorder; dementia; lg3 - PSHx: 03:33 Cholecystectomy; foot; back; lg3 - Immunization history:: Adult Immunizations up to date. - Infectious Disease History:: Denies. - Social history:: Smoking status: Patient reports the use of cigarette tobacco products, smokes one-half pack cigarettes per day, Patient/guardian denies using alcohol, street drugs. Screenin:35 [facility] ED Fall Risk Assessment (Adult) History of falling in the last 3 months, lg3 including since admission Yes- fall prone (multiple falls) (3 pts) Confusion or Disorientation No (0 pts) Intoxicated or Sedated No (0 pts) Impaired Gait Yes (1 pt) Mobility Assist Device Used Yes (1 pt) Altered Elimination No (0 pt) Score/Fall Risk Level 3 or more points = High Risk Oriented to surroundings, Maintained a safe environment, Educated pt \T\ family on fall prevention, incl call for assistance when getting out of bed, Assessed \T\ reinforced patient's understanding of fall precautions, Provided non-skid footwear. Abuse screen: Denies threats or abuse. Denies injuries from another. Nutritional screening: No deficits noted. Tuberculosis screening: No symptoms or risk factors identified. Assessment: 03:35 General: see triage assessment. lg3 06:30 Reassessment: Patient appears in no apparent distress at this time. No changes from lg3 previously documented assessment. Patient and/or family updated on plan of care and expected duration. Pain level reassessed. Patient is alert, oriented x 3, equal unlabored respirations, skin warm/dry/pink. Vital Signs: 03:26 BP 149 / 91; Pulse 90; Resp 17 S; Temp 98.5(O); Pulse Ox 97% on R/A; Weight 63.5 kg lg3 (R); Height 5 ft. 2 in. ; Pain 8/10; 06:30 BP 138 / 94; Pulse 89; Resp 16 S; Pulse Ox 97% on R/A; lg3 03:26 Body Mass Index 25.61 (63.50 kg, 157.48 cm) lg3 03:26 Pain Scale: Adult lg3 ED Course: 02:54 Patient arrived in ED. gm2 02:56 Christian Alfaro PA is PHCP. cp 02:56 Christian Tuttle MD is Attending Physician. cp 03:05 Wanda Matos, RN is Primary Nurse. lg3 03:32 Triage completed. lg3 03:33 Arm band placed on right wrist. lg3 03:35 Patient has correct armband on for positive identification. Placed in gown. Bed in low lg3 position. Call light in reach. Side rails up X 1. Client placed on continuous cardiac and pulse oximetry monitoring. NIBP monitoring applied. Door closed. Noise minimized. Warm blanket given. Pillow given. Family accompanied patient. 03:35 Initial lab(s) drawn, by ED staff, sent to lab. Inserted saline lock: 20 gauge in right lg3 antecubital area, using aseptic technique. Blood collected. Flushed with 10 mL NS. 03:36 CBC with Diff Sent. lg3 03:36 CMP Sent. lg3 03:36 Lipase Sent. lg3 03:36 Magnesium Sent. lg3 03:58 No provider procedures requiring assistance completed. Patient maintains SpO2 dd2 saturation greater than 95% on room air. 04:10 Assisted with urinal. 20ML dark yellow urine collected. lg3 04:26 Bladder scan completed. 0ml. lg3 04:55 CT Abd/Pelvis - IV Contrast Only In Process Unspecified. EDMS 04:56 CT Head Brain wo Cont In Process Unspecified. EDMS 06:08 Tiara Robbins MD is Hospitalizing Provider. cp 06:47 Inserted saline lock: 20 gauge in left antecubital area, using aseptic technique. lg3 Flushed with 10 mL NS. 07:03 Primary Nurse role handed off by Wanda Matos, RN bd Administered Medications: 03:57 Drug: Ondansetron IVP 4 mg IVP once; over 2 minutes Route: IVP; Site: right antecubital;dd2 06:30 Follow up: Response: No adverse reaction lg3 03:57 Drug: morphine IVP or IV 2 mg IVP once over 4 mins Route: IVP; Infused Over: 4 mins; dd2 Site: right antecubital; 04:12 Follow up: Response: No adverse reaction dd2 03:57 Drug: NS 0.9% IV 500 ml 500 ml IV at 1 bolus once; to be given as a bolus over 30 dd2 minutes Volume: 500 ml; Route: IV; Rate: 1 bolus; Site: right antecubital; 05:00 Follow up: IV Status: Completed infusion; IV Intake: 500ml dd2 06:27 Drug: Piperacillin-Tazobactam IVPB 3.375 grams IVPB once over 60 mins; (mix in NS 100 lg3 mL) Route: IVPB; Infused Over: 60 mins; Site: right antecubital; 06:27 Drug: NS 0.9% IV 500 ml 500 ml IV at 1 bolus once; to be given as a bolus over 30 lg3 minutes Volume: 500 ml; Route: IV; Rate: 1 bolus; Site: right antecubital; Intake: 05:00 IV: 500ml; Total: 500ml. dd2 Outcome: 06:12 Decision to Hospitalize by Provider. cp 21:44 Patient left the ED. br2 Signatures: Dispatcher [employer] EDMS Monika Kasper Corey, PA PA cp Able, Lacie RN RN lg3 Christa Lozoya gm2 Isidra Brenner RN RN br2 OZIEL VALVERDE RN RN dd2
[2024-12-24] MEDS ORDERED: SODIUM CHLORIDE 0.9% 10ML INJ IV PRN (09:01)
--- NOTE | 2024-12-24 09:06 | P.HP ---
Certification for Inpatient With expected LOS: >2 Midnights Patient will require the following post-hospital care: None Practitioner: I am a practitioner with admitting privileges, knowledge of patient current condition, hospital course, and medical plan of care. Services: Services provided to patient in accordance with Admission requirements found in Title 42 Section 412.3 of the Code of Federal Regulations Patient History Date of Service: 12/24/24 Reason for admission: Diverticulitis History of Present Illness: 69-year-old patient presented with lower abdominal pain, more on the left side from last night, pain radiating from left to the right lower abdomen, severe pain, so he presented to the emergency room, he was found to have diverticulitis with microperforation, surgery was already consulted, given IV antibiotics and we were asked admit him. Still complaining of some pain by the time of my visit. Other than this he denies any other acute complaints. No headache or blackouts. No double vision or blurry vision. No cough or sputum production. No chest pain or shortness of breath. No nausea or vomiting. No constipation or diarrhea. No blood in the urine or stool. No fever. No lower extremity edema. No joint pains. No recent change in the weight. Review of systems: All other 10 point review of systems are negative other than as mentioned above. Allergies and medications: Reviewed, as per med rec in EMR. Past medical history: Hypertension, mild dementia Past surgical history: Cholecystectomy, foot surgery, back surgery Social history: No alcohol or drugs. Positive for smoking. Family history: No family history of DC or CVA Physical examination: Vital signs: Reviewed, as per EMR. General appearance: Alert and comfortable HEENT: Extraocular movements intact, oral mucosa moist. CVS: Normal S1-S2 Lungs: Clear to auscultation bilaterally Abdomen: Soft, bowel sounds present, tenderness present in the lower abdomen, more in the left lower quadrant compared with the right side Extremities: No lower extremity edema SCANNING SUPERVISOR: Moves all 4 extremities, no obvious focal deficits, AAO x 3/3 Musculoskeletal: No obvious joint swelling or tenderness Allergies No Known Allergies Allergy (Unverified 01/07/12 14:35) Home Medications: Fenofibrate Nanocrystallized [Tricor] 135 mg PO DAILY #0 tablet 01/08/12 Loratadine [Claritin] 10 mg PO DAILY #0 tablet 05/01/12 - Past Medical/Surgical History Diabetic: No - Social History Alcohol use: Yes CD- Drugs: No Caffeine use: Yes Physical Examination - Studies Laboratory Data (last 24 hrs) 12/24/24 12/24/24 03:27 03:27 WBC 14.90 H Hgb 14.8 Hct 42.9 Plt Count 187 Sodium 138 Potassium 3.4 L BUN 19 H Creatinine 0.96 Glucose 122 H Magnesium 1.9 Total Bilirubin 1.9 H AST 11 L ALT 16 Alkaline Phosphatase 82 Lipase 19 Assessment and Plan - Plan Assessment and plan: 1. Acute diverticulitis with microperforation: Will keep him n.p.o., IV fluids, IV antibiotics and pain medications, surgery is on board, further evaluation and management as per surgical team. 2. Hypokalemia: Replace and monitor. 3. Hypertension: Resume home medications when able, IV as needed medications for now. 4. Dementia: Seems to be mild, he is alert and oriented, supportive care for now, resume home medications when able. DVT prophylaxis: Lovenox CODE STATUS: Full code Advanced directives: I discussed advanced directives with the patient and his at bedside, his Christin is the POA. I did discuss all the above plan with the patient and his at bedside, they both understand and agrees with the plan. - Advance Directives Does patient have a Living Will: No Does patient have a Durable POA for Healthcare: No
[2024-12-24] MEDS: NA CHLORIDE 0.9% 1,000 ML IV SCH (10:00)
[2024-12-24] MEDS: KCL 20 MEQ/100 mL IVPB 100 ML IV SCH (10:00)
--- NOTE | 2024-12-24 10:29 | CON ---
Date of Consultation: 12/24/2024 Reason For Consultation: Abdominal pain. History Of Present Illness: The patient is a 69-year-old gentleman, who presents to emergency room w ith acute onset of lower abdominal pain. Denies any nausea, vomiting, diarrhea, or constipation. No blood in his stool. No dysuria, hematuria. The patient has never had a colonoscopy. No sore throa t, runny nose, cough, headaches, or dizziness. No chest pain. No fever or chills. Pain is more in the left lower quadrant and suprapubic region. Review of Systems: Otherwise unremarkable. Past Medical History: Hypertension and slight dementia. Past Surgical History: Cholecystectomy, foot surgery for bunion, and back surgery. Allergies: NO ALLERGIES. Social History: The patient does smoke and was counseled. He denies any alcohol use. Physical Examination: Vital Signs: Stable. He is afebrile. General: He is awake, alert, oriented x3, but confused. Head and Neck: No masses. Chest: Clear. Heart: S1, S2. Abdomen: Soft, nondistended. Slightly hyperactive bowel sounds and suprapubic and left lower quadra nt tenderness with minimal rebound. No rigidity. No guarding. Extremities: Adequately perfused, nontender. Neuro: Nonfocal. Laboratory Data: Reviewed. White count is 14.9 with left shift. Chemistry reviewed. Lactic acid i s 1.1, potassium is 3.4, being replaced. Remainder of the labs are essentially unremarkable with sli ght elevation of the total bilirubin at 1.9. Urinalysis shows trace blood, 25 leukocyte esterase. C T of the abdomen and pelvis reviewed, it shows peridiverticular standing involving the sigmoid colon consistent with diverticulitis. There are few extra lumen air gas consistent with microperforation. CT of the head without contrast is negative. Assessment: Acute sigmoid diverticulitis. Recommendations: Admit n.p.o., IV fluid, IV antibiotic. Serial abdominal exam. Should the patient clinically worsen, he may need surgical intervention, but at this time, we will try medical managemen t first and if it is cleared, we can start the patient on clear liquids in 24 to 48 hours and advance as tolerated. The patient will need to be on a low-fiber diet and get dietary consultation initiall y and then high-fiber diet following. The patient will also need a colonoscopy in 4 to 6 weeks after discharge, following which the patient should be evaluated by colorectal surgeon for a segmental col on resection as an outpatient. /MODL Voice ID: [id number] Report ID: [id number]
[2024-12-24 11:18] VITALS: BMI 25.6
[2024-12-24] MEDS ORDERED: KCL 20 MEQ/100 mL IVPB 100 ML IV ONE ×2 (11:30→13:52)
[2024-12-24] MEDS ORDERED: NA CHLORIDE 0.9% 1,000 ML ONE (11:30)
[2024-12-24] MEDS: MORPHINE 2 MG/ML SYR IV PRN (12:03)
[2024-12-24] MEDS: PIPER TAZO 3.375 GM in NA CHLORIDE 0.9% 100 ML IV SCH (17:00)
[2024-12-24] MEDS ORDERED: NA CHLORIDE 0.9% 100 ML ONE (18:25)
[2024-12-24] MEDS: HYDRALAZINE HCL 20 MG/ML VIAL IV PRN (22:39)
[2024-12-24] MEDS: PANTOPRAZOLE 40 MG INJ IVP SCH (22:39)
[2024-12-25 05:14] LABS: Absolute Basophils 0.1 K/uL (0-0.5); Absolute Lymphocytes (CBC) 0.8 K/uL (0.7-4.9); Absolute Monocytes 0.7 K/uL (0.1-1.3); Absolute Neutrophil 15.3 K/uL (1.8-8.0); Basophils % 0.7 % (0-1.3); Eosinophils % 0.1 % (0-4.4); Hematocrit 38.5 % (39.6-49.0); Hemoglobin 13.2 g/dL (13.6-17.9); MCH 29.2 pg (27.0-35.0); MCHC 34.2 g/dL (32.0-36.0); MCV 85.2 fL (80-100); MPV 9.5 fL (7.6-11.3); Monocytes % 4.3 % (3.3-12.3); Platelets 175 thou/uL (152-406); RBC Red Blood Cell Count 4.52 M/uL (4.33-5.43); Red Cell Distribution Width 14.2 % (12.1-15.2)
[2024-12-25 05:23] LABS: Neutrophils % 89.9 % (41.7-73.7)
[2024-12-25 05:27] LABS: Anion Gap 11.4 mEq/L (5.0-15.0); Magnesium 1.9 mg/dL (1.6-2.4); Phosphorus 2.2 mg/dL (2.5-4.9); Potassium 3.4 mEq/L (3.5-5.1)
--- NOTE | 2024-12-25 07:52 | P.PN ---
Date of Service: 12/25/24 Subjective Awake, tolerating NPO c/o abdominal pain, has improved some Hypertensive today, restarted home medications ROS 10 point ROS as noted above, otherwise negative Physical examination General : Alert, NAD HEENT: Extraocular movements intact, oral mucosa moist CVS: Normal S1-S2, RRR Lungs: Clear to auscultation bilaterally Abdomen: Soft on palpation, bowel sounds present, tenderness present in the lower abdomen, more in the left lower quadrant compared with the right side Extremities: No lower extremity edema, 2+ peripheral pulses PHYSICIAN IN PRIVATE PRACTICE: no obvious focal deficits, AAO x 3/3 Musculoskeletal: No obvious joint swelling or tenderness Vitals Reviewed Problem list Acute diverticulitis with microperforation Hypokalemia Hypertension Dementia Assessment and Plan Acute diverticulitis with microperforation n.p.o Gentle IV fluids Merrem started (12/25) IV antibiotics and pain medications surgery following-if WBC continuse to increase obtain imaging in the a.m. further evaluation and management as per surgical team. Follow-up with colorectal surgeon and GI outpatient Hypokalemia Replace PRN Hypertension Resume home medications when able, Hydralazine PRN Dementia Alert and oriented today supportive care for now Continue home medications DVT prophylaxis: Lovenox CODE STATUS: Full code LOS 2-3 days
[2024-12-25] MEDS: POTASSIUM 25 MEQ EFFERV TAB PO ONE (08:30)
[2024-12-25] MEDS: ENOXAPARIN 40 MG/0.4 ML SQ SCH (08:45)
--- NOTE | 2024-12-25 11:34 | PN ---
Date of Progress Note: 12/25/2024 Subjective: The patient is still with lower abdominal pain. His vitals are stable. Blood pressure is little high, but he is afebrile. His white count is 17. His abdomen still has tenderness with mi nimal rebound, but no rigidity or guarding. No involuntary guarding. Assessment: Acute sigmoid diverticulitis. Recommendations: We will continue serial abdominal exam. Repeat the blood work in the morning. Bri uld his white count remain high or go up, we may repeat the CAT scan. The patient may need surgical intervention with a Marisa procedure. However, as the patient is clinically stable at this time, w e will give him another 24 hours to re-evaluate. We will also change the antibiotics to meropenem. This case was discussed in detail with the Hospitalist Team. MICAELA/MODL Voice ID: [id number] Report ID: [id number]
[2024-12-25] MEDS: carvediloL 25 MG TAB PO ONE (18:44)
[2024-12-25] MEDS: Meropenem 1,000 MG in NA CHLORIDE 0.9% 100 ML IV SCH (19:39)
[2024-12-25] MEDS: DONEPEZIL HCL 5 MG TAB PO SCH (19:43)
[2024-12-25] MEDS: ONDANSETRON 4 MG/2 ML VIAL IV PRN (19:57)
[2024-12-25] MEDS ORDERED: carvediloL 25 MG TAB PO SCH (21:00)
[2024-12-26] MEDS ORDERED: Meropenem 1,000 MG in NA CHLORIDE 0.9% 100 ML IV SCH (01:00)
[2024-12-26 06:05] LABS: Absolute Eosinophils 0.2 K/uL (0-0.5); Absolute Lymphocytes (CBC) 1.1 K/uL (0.7-4.9); Absolute Monocytes 0.8 K/uL (0.1-1.3); Absolute Neutrophil 14.7 K/uL (1.8-8.0); Basophils % 0.2 % (0-1.3); Eosinophils % 0.9 % (0-4.4); Hematocrit 37.9 % (39.6-49.0); Hemoglobin 13.5 g/dL (13.6-17.9); Lymphocytes % 6.4 % (15.3-44.8); MCH 30.4 pg (27.0-35.0); MCHC 35.5 g/dL (32.0-36.0); MCV 85.7 fL (80-100); MPV 10.1 fL (7.6-11.3); Neutrophils % 87.5 % (41.7-73.7); Platelets 197 thou/uL (152-406); RBC Red Blood Cell Count 4.42 M/uL (4.33-5.43); Red Cell Distribution Width 14.5 % (12.1-15.2)
[2024-12-26 06:13] LABS: Anion Gap 12.8 mEq/L (5.0-15.0); Potassium 3.8 mEq/L (3.5-5.1)
[2024-12-26] MEDS: LOSARTAN POTASSIUM 50 MG TABLET PO SCH (09:00)
[2024-12-26] MEDS: carvediloL 25 MG TAB PO SCH (09:00)
[2024-12-26] MEDS ORDERED: HOME MED 1 EA UNK (Losartan Potassium [Losartan Potassium] 100 MG Tablet) PO SCH (09:00)
[2024-12-26] MEDS: KCL 20 MEQ/100 mL IVPB 20 MEQ/100 ML BAG IV SCH (12:29)
--- NOTE | 2024-12-26 15:19 | P.PN ---
Subjective Date of Service: 12/26/24 Chief Complaint: Diverticulitis Patient states that his abdominal pain is better. He states he is hungry. No nausea or vomiting No recorded fever No BM yet. 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 Continue IV fluid Continue IV meropenem General Surgery Dr. Knox input appreciated. Repeat CT abdomen pelvis to assess for fluid collections that may necessitate IR drainagel Analgesics as needed further evaluation and management as per surgical team. Patient may need follow-up with colorectal surgeon and GI outpatient Hypokalemia Replace potassium as needed Hypertension Continue home medications. Hydralazine PRN Dementia Continue home medications DVT prophylaxis: Lovenox CODE STATUS: Full code
--- NOTE | 2024-12-26 16:22 | RAD REPORT ---
EXAMINATION: Abdomen Pelvis W Contrast CLINICAL INDICATION: Male, 69 years old.Follow up diverticulitis with perforation TECHNIQUE: CT abdomen and pelvis was performed, after the administration of IV contrast, as per [facility] protocol. Axial, sagittal and coronal reconstructions were obtained. One or more of the following dose reduction techniques were used: Automated exposure control, adjustment of the mA and/o r kV according to patient size, and/or iterative reconstruction. Unless otherwise specified, incidental findings do not require dedicated imaging follow-up. [id number]. COMPARISON: 12/24/2024 FINDINGS: LOWER CHEST: Small pleural effusion in the left lower lobe is new from prior.Mild cardiomegaly. UPPER GI: No significant abnormality. LIVER: No significant focal abnormality. GALLBLADDER/BILE DUCTS: Cholecystectomy. Mild extra-hepatic biliary ductal dilatation is likely relat ed to the post-cholecystectomy state. Consider correlating with LFT's.? PANCREAS: No mass, ductal dilation, or jorge-pancreatic fluid. SPLEEN: Unremarkable. ADRENALS: No adrenal masses. KIDNEYS AND URETERS: No hydronephrosis. Indeterminate renal masses are present bilaterally. ABDOMINAL AORTA AND OTHER VESSELS: Mild atherosclerotic changes. PERITONEUM: Inflammatory changes of the sigmoid colon with trace extraluminal gas and with contained perforation. No drainable abscess. A small 8 mm collection is present. Gas remains localized. LYMPH NODES: No pathologic lymphadenopathy. ABDOMINAL WALL: Fat-containing inguinal hernias. SMALL BOWEL/COLON: Inflammatory changes at the proximal to mid sigmoid colon. No bowel obstruction. URINARY BLADDER: Underdistended but grossly unremarkable. REPRODUCTIVE ORGANS: Mild prostatomegaly. MUSCULOSKELETAL: Multilevel degenerative changes in the spine. No acute fracture. ADDITIONAL FINDINGS: None. IMPRESSION: Sigmoid diverticulitis with microperforation similar to 12/24/2024. The volume of localized extra christopher nal gas is similar. A small 8 mm collection is present that likely still communicates with the colonic lumen but is too small to drain. Indeterminate renal lesions bilaterally. Recommend nonemergent renal protocol MRI for further evaluat ion.
[2024-12-26] MEDS: ZOLPIDEM TARTRATE 5 MG TABLET PO PRN (23:06)
--- NOTE | 2024-12-26 23:14 | PN ---
Date of Progress Note: 12/26/2024 Subjective: The patient is awake, alert, feels a little better. Still with left lower quadrant pain . Objective: Vital Signs: Stable. He is afebrile. Abdomen: Reveals tenderness in the left lower quadrant with minimal rebound and minimal involuntary guarding. Laboratory Data: White count is 16.9, with a left shift. Assessment: Acute sigmoid diverticulitis, probably a phlegmon or an abscess developing. Recommendation: To get a CT of the abdomen and pelvis to evaluate what the patient's condition is at . I do not think the patient needs any surgical intervention, but I just want to see if he has a col lection that may need Interventional Radiology to help. Plan of care discussed with the hospitalist team and after the CAT scan of patient, we can consider starting the patient on clear liquid diet. /MODL Voice ID: [id number] Report ID: [id number]
[2024-12-27 06:24] LABS: Absolute Eosinophils 0.2 K/uL (0-0.5); Absolute Lymphocytes (CBC) 0.7 K/uL (0.7-4.9); Absolute Monocytes 0.7 K/uL (0.1-1.3); Absolute Neutrophil 7.5 K/uL (1.8-8.0); Basophils % 0.4 % (0-1.3); Eosinophils % 1.9 % (0-4.4); Hematocrit 37.7 % (39.6-49.0); Hemoglobin 12.9 g/dL (13.6-17.9); Lymphocytes % 8.1 % (15.3-44.8); MCH 29.3 pg (27.0-35.0); MCHC 34.3 g/dL (32.0-36.0); MCV 85.5 fL (80-100); MPV 8.7 fL (7.6-11.3); Monocytes % 7.9 % (3.3-12.3); Neutrophils % 81.7 % (41.7-73.7); Nucleated Red Blood Cells % 0.2 % (0-0); Platelets 233 thou/uL (152-406); RBC Red Blood Cell Count 4.41 M/uL (4.33-5.43); Red Cell Distribution Width 14.2 % (12.1-15.2)
[2024-12-27 06:37] LABS: Anion Gap 12.4 mEq/L (5.0-15.0); Potassium 3.4 mEq/L (3.5-5.1)
[2024-12-27] MEDS: POTASSIUM 25 MEQ EFFERV TAB PO ONE (12:13)
--- NOTE | 2024-12-27 13:26 | P.PN ---
Subjective Date of Service: 12/27/24 Chief Complaint: Diverticulitis Patient reports significant improvement in his abdominal pain. He is tolerating clear liquid diet. No recorded fever. Physical Examination - Vital Signs Temperature: 97.7 F Blood Pressure: 151/88 Pulse: 60 Respirations: 18 Pulse Ox (%): 96 Assessment And Plan - Plan Physical examination General : Alert, NAD CVS: Normal S1-S2, regular rhythm, normal rate. Lungs: Clear to auscultation bilaterally Abdomen: Soft on palpation, bowel sounds present, tenderness-left lower quadrant. 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 Continue IV fluid Continue IV meropenem General Surgery Dr. Knox input appreciated. Repeat CT abdomen pelvis to assess for fluid collections that may necessitate IR drainagel Analgesics as needed further evaluation and management as per surgical team. Patient may need follow-up with colorectal surgeon and GI outpatient Hypokalemia Replace potassium as needed Hypertension Continue home medications. Hydralazine PRN Dementia Continue home medications 12/27 Leukocytosis resolved. Patient is clinically improving and responding well to the IV meropenem. Repeat CT scan of the abdomen shows small fluid collection, too small for IR drainage. Continue IV meropenem. Analgesics as needed Clear liquid diet General Surgery Dr. Knox to follow. Monitor and correct electrolytes as needed Decreased mobility with shuffling gait noted PT consult. DVT prophylaxis: Lovenox CODE STATUS: Full code
[2024-12-28 00:07] VITALS: O2SAT 95
[2024-12-28 04:34] LABS: Absolute Eosinophils 0.2 K/uL (0-0.5); Absolute Lymphocytes (CBC) 0.8 K/uL (0.7-4.9); Absolute Monocytes 0.8 K/uL (0.1-1.3); Absolute Neutrophil 3.9 K/uL (1.8-8.0); Basophils % 0.3 % (0-1.3); Eosinophils % 2.7 % (0-4.4); Hematocrit 37.3 % (39.6-49.0); Lymphocytes % 13.4 % (15.3-44.8); MCH 29.5 pg (27.0-35.0); MCHC 34.8 g/dL (32.0-36.0); MCV 84.5 fL (80-100); MPV 8.8 fL (7.6-11.3); Monocytes % 14.8 % (3.3-12.3); Neutrophils % 68.8 % (41.7-73.7); Nucleated Red Blood Cells % 0.1 % (0-0); Platelets 237 thou/uL (152-406); RBC Red Blood Cell Count 4.41 M/uL (4.33-5.43); Red Cell Distribution Width 13.9 % (12.1-15.2)
[2024-12-28 04:40] LABS: Anion Gap 7.6 mEq/L (5.0-15.0); Potassium 3.6 mEq/L (3.5-5.1)
[2024-12-28] MEDS: POTASSIUM 25 MEQ EFFERV TAB PO ONE (08:56)
--- NOTE | 2024-12-28 11:19 | P.DS ---
Admission Date: 12/24/24 Discharge Date: 12/28/24 Disposition: ROUTINE DISCHARGE Discharge Condition: FAIR Reason for Admission: Diverticulitis Hospital Course: Problem list Acute diverticulitis with microperforation Hypokalemia Hypertension Dementia Impaired mobility 69-year-old patient presented with left sided lower abdominal pain. CT abdomen pelvis done in the ED suggested diverticulitis with microperforation. Patient was admitted for further management. Patient was treated with aggressive antibiotics, initially IV Zosyn which was changed to IV meropenem due to significant leukocytosis. Patient evaluated by surgery Dr. Knox who recommended medical management and close monitoring Patient's abdominal pain improved, leukocytosis resolved. Repeat CT abdomen and pelvis done shows small fluid collection, too small for IR drainage. Patient eventually tolerated diet. He was evaluated by physical therapy and noted to have mild shuffling gait. Patient was able to ambulate several feet independently. Patient evaluated by Dr. Knox and deemed stable for discharge. He is discharged with oral ciprofloxacin and Flagyl. He also prescribed a few days of Koppel for pain management Vital Signs/Physical Exam: Temp Pulse Resp BP Pulse Ox 98.1 F 59 18 181/94 H 96 12/28/24 08:00 12/28/24 08:57 12/28/24 08:51 12/28/24 08:51 12/28/24 08:00 General: Alert, In no apparent distress, Oriented x3 HEENT: Mucous membr. moist/pink, Sclerae nonicteric Neck: Supple, JVD not distended Respiratory: Clear to auscultation bilaterally, Normal air movement Cardiovascular: No edema, Regular rate/rhythm, Normal S1 S2 Gastrointestinal: Soft and benign, Non-distended, No rebound, No guarding, Other (Mild left lower quadrant tenderness, no guarding.) Musculoskeletal: No swelling Integumentary: No rashes, No cyanosis Neurological: Normal speech, Normal strength at 5/5 x4 extr Laboratory Data at Discharge: WBC 5.70 thou/uL (4.3-10.9) 12/28/24 04:17 Hgb 13.0 g/dL (13.6-17.9) L 12/28/24 04:17 Hct 37.3 % (39.6-49.0) L 12/28/24 04:17 Plt Count 237 thou/uL (152-406) 12/28/24 04:17 Sodium 135 mEq/L (136-145) L 12/28/24 04:17 Potassium 3.6 mEq/L (3.5-5.1) 12/28/24 04:17 BUN 11 mg/dL (7-18) 12/28/24 04:17 Creatinine 0.72 mg/dL (0.70-1.30) 12/28/24 04:17 Glucose 101 mg/dL (74-106) 12/28/24 04:17 Phosphorus 2.2 mg/dL (2.5-4.9) L 12/25/24 04:50 Magnesium 1.9 mg/dL (1.6-2.4) 12/25/24 04:50 Total Bilirubin 1.9 mg/dL (0.2-1.0) H 12/24/24 03:27 AST 11 U/L (15-37) L 12/24/24 03:27 ALT 16 U/L (16-61) 12/24/24 03:27 Alkaline Phosphatase 82 U/L (45-117) 12/24/24 03:27 Lipase 19 U/L (13-75) 12/24/24 03:27 Home Medications: Donepezil [Aricept*] 10 mg PO BEDTIME 12/25/24 Losartan Potassium 100 mg PO DAILY 12/25/24 carvediloL [Carvedilol] 25 mg PO BID 12/25/24 Ciprofloxacin HCl [Cipro 500 MG Tablet] 500 mg PO BID #20 tab 12/28/24 Hydrocodone 5/APAP 325 [Koppel 5/325] 1 tab PO Q6H PRN #15 tab 12/28/24 metroNIDAZOLE [Flagyl] 500 mg PO Q8H #30 tab 12/28/24 New Medications: Ciprofloxacin HCl [Cipro 500 MG Tablet] 500 mg PO BID #20 tab metroNIDAZOLE [Flagyl] 500 mg PO Q8H #30 tab Hydrocodone 5/APAP 325 [Koppel 5/325] 1 tab PO Q6H PRN #15 tab PRN Reason: Pain Physician Discharge Instructions: 69-year-old patient presented with left sided lower abdominal pain. CT abdomen pelvis done in the ED suggested diverticulitis with microperforation. Patient was admitted for further management. Patient was treated with aggressive antibiotics, initially IV Zosyn which was changed to IV meropenem due to significant leukocytosis. Patient evaluated by surgery Dr. Knox who recommended medical management and close monitoring Patient's abdominal pain improved, leukocytosis resolved. Repeat CT abdomen and pelvis done shows small fluid collection, too small for IR drainage. Patient eventually tolerated diet. He was evaluated by physical therapy and noted to have mild shuffling gait. Patient was able to ambulate several feet independently. Patient evaluated by Dr. Knox and deemed stable for discharge. He is discharged with oral ciprofloxacin and Flagyl. He also prescribed a few days of Koppel for pain management Follow up with GI for Colonoscopy in 4-6 weeks after discharge and when medically cleared Follow up with colorectal surgeon for segmental colon resection outpatient Diet: AHA (Soft diet for2 days and then advance as tolerated) Activity: Fall precautions Followup: Deedee Rivas DO, DO [Primary Care Provider] - Elder Jensen MD [ASSOCIATE-ACTIVE - CAN ADMIT] - (Within 4-6 weeks) Time spent managing pt's care (in minutes): 40
[2024-12-28 12:28] VITALS: TEMP 98
--- NOTE | 2024-12-28 12:54 | PN ---
Date of Progress Note: 12/28/2024 Subjective: The patient is tolerating a soft diet. No pain. Very minimal tenderness. Objective: Vital Signs: Stable. Afebrile. Laboratory Data: White count is 5.7, there is no left shift anymore. Assessment: Acute sigmoid diverticulitis, complicated, improved. Recommendation: Patient can be discharged home on antibiotics. Follow up with GI in 4-6 weeks for c olonoscopy, after which I would recommend getting a segmental colon resection. Plan of care discusse d with the hospitalist team. /MODL Voice ID: [id number] Report ID: [id number]
[2024-12-28] MEDS: HYDRALAZINE HCL 25 MG TABLET PO ONE (12:57)
[2024-12-28 14:31] VITALS: BP 160/83
--- NOTE | 2024-12-30 13:03 | EKG ---
Test Date: 2024-12-24 Test Time: 03:47:05 [employer] Worker: AF MEASUREMENT RESULTS: Intervals: Rate: 91 CA: 158 QRSD: 92 QT: 338 QTc: 415 Rumson: P: 39 CA: 158 QRS: -45 T: 68 INTERPRETIVE STATEMENTS: Normal sinus rhythm Left anterior fascicular block Abnormal ECG Compared to ECG 01/08/2012 06:19:09 Left anterior fascicular block now present Sinus bradycardia no longer present Electronically Signed On 12-30-24 12:45:28 CDT by Lacho Medeiros
== END 2024-12-28 14:43 | disposition home or self-care (01) | DRG 392 ==
LOC: ER 02:50 → ERHOLD 09:02 → 2ND 20:13
PROVIDERS: ADMIT Hospitalist; ATTEND Internal Medicine
DX: K57.20 Diverticulitis of large intestine with perforation and abscess without bleeding (principal); I10 Essential (primary) hypertension; E87.6 Hypokalemia; F17.210 Nicotine dependence, cigarettes, uncomplicated; F03.90 Unspecified dementia, unspecified severity, without behavioral disturbance, psychotic disturbance, mood disturbance, and anxiety; Z79.02 Long term (current) use of antithrombotics/antiplatelets; Z90.49 Acquired absence of other specified parts of digestive tract; Z79.899 Other long term (current) drug therapy
CPT/HCPCS: 36415; 70450; 74177; 80048; 80053; 81001; 83605; 83690; 83735; 84100; 85025; 87040; 93005; 96361; 96374; 96375; 97116; 97161; 99284; J0360; J1650; J2185; J2270; J2405; J2470; J2543; J3480; J7030; J7040; Q9967